=== PATIENT | female | born 1940 | race Asian ===

== ENCOUNTER 2017-08-28 19:19 | Emergency (ER) | payer MEDICARE, OTHER ==
[2016-05-24 13:48] VITALS: Wt 44.5 kg
[~2017-08-28 19:19] MED LIST: ACET500T68 PO; ALUM PO; AMLO-96 PO; ASPI81TA94 PO; CALC500T6 PO; DEME300T9 PO; DEX4 PO; DIPHENHYDR PO; DRON2.5C10 PO; DRON2.5C11 PO; FEN145 PO; FENT-15 TD; FOLI-94 PO; HYDR-2966 PO; HYDR-385 PO; IRON1CAP52 PO; LEVO-85 PO; LIDO5CRE TP; LIDOCAINE PO; MELA3TAB31 PO; METO-253 PO; METO50TA19 PO; ONDA-2 PO; ONDA4TAB PO; ONDA8TAB94 PO; OXYC-865 PO; PANT40TA65 PO; SULF-198 PO; [UNRECOGNIZED DRUG - OTHER] PO
[2017-08-28] MEDS ORDERED: BISA5TAB19 PO (19:31)
[2017-08-28] MEDS ORDERED: LACT10SO62 PO (19:31)
[2017-08-28] MEDS ORDERED: [UNRECOGNIZED DRUG - CODE] PO (19:31)
[2017-08-28] MEDS ORDERED: AMLO-96 PO (19:31)
[2017-08-28] MEDS ORDERED: TRAM-420 PO (19:31)
--- NOTE | 2017-08-28 19:31 | ER Report ---
History and Physical Time Seen By MD: 19:30 HPI/ROS CHIEF COMPLAINT: Chest pain HISTORY OF PRESENT ILLNESS: 76-year-old female patient presents to emergency room with complaint of chest pain. Patient states she's been having chest pain for the last several hours. She states she did try some Tums at home with no relief. Patient states she has pain in the epigastric region. Patient denies any nausea, vomiting. Patient does have worsening pain which takes a deep breath. Patient states she has not had any problems eating or drinking. She states she is not taking any medication for this. Patient has just returned from a trip to [facility], where she spent the last 8 months. 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 She was on hospice but was released from hospice after doing well for several months. She did see a provider in [facility], the recommended surgery, however the patient refused surgery at that time. REVIEW OF SYSTEMS: Respiratory: No cough, no dyspnea. Cardiovascular: As noted above Gastrointestinal: As noted above. Musculoskeletal: No back pain. Allergies: Coded Allergies: diphenhydramine (Verified Adverse Reaction, Intermediate, RASH, 08/28/17) Home Meds Active Scripts Oxycodone Hcl (OXYCODONE HCL) 5 Mg Tablet, 5 MG PO Q4-6H Y for PAIN, #20 TAB Prov:BIANCA REYES BARBER SHOP OPERATOR 08/28/17 Reported Medications Amlodipine Besylate (AMLODIPINE BESYLATE) 5 Mg Tablet, 1 TAB PO QDAY, TAB 08/28/17 Bisacodyl (Women's Gentle Laxative) 5 Mg Tablet.dr, PO Q8H Y for CONSTIPATION 08/28/17 Lactulose (LACTULOSE) 10 Gm/15 Ml Solution, 20 ML PO Q8H Y for CONSTIPATION 08/28/17 Megestrol Acetate (MEGACE ES) 625 Mg/5 Ml Oral.susp, 160 MG PO DAILY 08/28/17 Tramadol Hcl (TRAMADOL HCL) 50 Mg Tablet, 50-150 MG PO Q4-6H Y for PAIN, TAB 08/28/17 Discontinued Reported Medications Mu-Vits-Min Th/Lycopene/Lutein (A THRU Z SELECT MULTIVIT TAB) 1 Each Tablet, 1 EACH PO DAILY 12/30/12 Metoprolol Tartrate (METOPROLOL TARTRATE) 50 Mg Tab, 1 TAB PO QDAY 9/4/13 Discontinued Scripts Hydrocodone Bit/Acetaminophen (HYDROCODON-ACETAMINOPHEN 5-325) 1 Each Tablet, 1- 2 EACH PO Q4H, #30 TAB Prov:CHAPO ESPINOSA CHAVO 11/18/16 Ondansetron (ZOFRAN ODT) 4 Mg Tab.rapdis, 4 MG PO Q6H Y for NAUSEA/VOMITING, # 20 TAB.MILIND Prov:CHAPO ESPINOSA SABRA-Mine 11/18/16 Dexamethasone 4 Mg Tab (DEXAMETHASONE 4 MG TAB) 4 Mg Tab, 4 MG PO DAILY for 7 Days, #7 TAB Prov:CHAPO ESPINOSA SABRA-Mine 11/18/16 Metoprolol Succinate (METOPROLOL SUCCINATE) 50 Mg Tab.er.24h, 1 TAB PO QDAY, # 30 TAB Prov:PABLO CHAVEZ MD 05/28/16 Past Medical/Surgical History Patient has a past medical history of hypertension, hyperlipidemia, positive PPD , GI bleed, anxiety, cancer. Patient has past surgical history of tubal ligation. Reviewed Nurses Notes: Yes Hx Smoking: Yes Smoking Status: Former Smoker Exposure to Second Hand Smoke?: Yes Hx Substance Use Disorder: No Hx Alcohol Use: No Constitutional Vital Sign - Last 24 Hours 08/28/17 08/28/17 08/28/17 08/28/17 19:30 19:31 19:45 20:00 Temp 99.2 Pulse 94 96 94 93 Resp 14 21 18 B/P (MAP) 137/62 (87) 137/62 144/59 (87) Pulse Ox 92 93 92 90 O2 Delivery Room Air 08/28/17 08/28/17 08/28/17 08/28/17 20:15 20:30 20:45 20:55 Pulse 95 100 Resp 14 17 17 B/P (MAP) 148/66 (93) Pulse Ox 90 90 91 08/28/17 08/28/17 08/28/17 08/28/17 21:15 21:30 21:45 22:00 Pulse 114 104 102 104 Resp 20 19 16 B/P (MAP) 156/87 (110) 145/74 (97) Pulse Ox 86 93 92 Intake and Output 08/28/17 08/28/17 08/29/17 15:01 23:01 07:01 Intake Total 500 ml Balance 500 ml Physical Exam General Appearance: The patient is alert, has no immediate need for airway protection and no current signs of toxicity. Respiratory: Chest is non tender, lungs are clear to auscultation. Cardiac: regular rate and rhythm, patient does have a murmur. Gastrointestinal: Abdomen is soft and tender in the epigastric region, no masses , bowel sounds normal. Musculoskeletal: Neck: Neck is supple and non tender. Extremities have full range of motion and are non tender. Skin: No rashes or lesions. DIFFERENTIAL DIAGNOSIS: After history and physical exam differential diagnosis was considered for chest pain including but not limited to myocardial ischemia, pericarditis pulmonary embolus, chest wall pain, pleural inflammation and pulmonary infectious causes. Medical Decision Making Data Points Result Diagram: 08/28/17193908/28/171939 Laboratory Hematology Test 08/28/17 19:40 Red Blood Count 3.16 M/uL (4.17-5.56) Mean Corpuscular Volume 69.7 fL (80.0-96.0) Mean Corpuscular Hemoglobin 23.1 pg (26.0-33.0) Mean Corpuscular Hemoglobin Concent 33.2 g/dL (32.0-36.0) Red Cell Distribution Width 21.2 % (11.5-14.5) Mean Platelet Volume 7.2 fL (7.2-11.1) Neutrophils (%) (Auto) % (39.4-72.5) Lymphocytes (%) (Auto) % (17.6-49.6) Monocytes (%) (Auto) % (4.1-12.4) Eosinophils (%) (Auto) % (0.4-6.7) Basophils (%) (Auto) % (0.3-1.4) Nucleated RBC Relative Count (auto) /100WBC Neutrophils # (Auto) K/uL (2.0-7.4) Lymphocytes # (Auto) K/uL (1.3-3.6) Monocytes # (Auto) K/uL (0.3-1.0) Eosinophils # (Auto) K/uL (0.0-0.5) Basophils # (Auto) K/uL (0.0-0.1) Nucleated RBC Absolute Count (auto) K/uL Neutrophils % (Manual) 85 % (39.4-72.5) Lymphocytes % (Manual) 8 % (17.6-49.6) Monocytes % (Manual) 5 % (4.1-12.4) Eosinophils % (Manual) 1 % (0.4-6.7) Basophils % (Manual) 1 % (0.3-1.4) Hypochromasia 1+ Anisocytosis 2+ Microcytosis 2+ Peripheral Blood Smear Yes Y/N Sodium Level 134 mmol/L (137-145) Potassium Level 3.2 mmol/L (3.5-5.0) Chloride Level 104 mmol/L (98-107) Carbon Dioxide Level 19 mmol/L (22-31) Blood Urea Nitrogen 8 mg/dl (7-18) Creatinine 0.60 mg/dl (0.52-1.04) Glomerular Filtration Rate Calc > 60.0 Random Glucose 120 mg/dl (75-110) Calcium Level 8.6 mg/dl (8.4-10.2) Total Bilirubin 0.7 mg/dl (0.2-1.3) Aspartate Amino Transf (AST/SGOT) 41 U/L (0-35) Alanine Aminotransferase (ALT/SGPT) 27 U/L (0-56) Alkaline Phosphatase 438 U/L (0-126) Troponin I < 0.012 ng/ml Total Protein 6.5 gm/dl (6.3-8.2) Albumin 2.6 g/dl (3.5-5.0) Amylase Level 87 U/L (0-110) Lipase 101 U/L (23-300) Chemistry Test 08/28/17 19:40 White Blood Count 13.1 k/uL (4.5-11.0) Red Blood Count 3.16 M/uL (4.17-5.56) Hemoglobin 7.3 g/dL (12.0-16.0) Hematocrit 22.0 % (34.0-47.0) Mean Corpuscular Volume 69.7 fL (80.0-96.0) Mean Corpuscular Hemoglobin 23.1 pg (26.0-33.0) Mean Corpuscular Hemoglobin Concent 33.2 g/dL (32.0-36.0) Red Cell Distribution Width 21.2 % (11.5-14.5) Platelet Count 469 K/uL (150-450) Mean Platelet Volume 7.2 fL (7.2-11.1) Neutrophils (%) (Auto) % (39.4-72.5) Lymphocytes (%) (Auto) % (17.6-49.6) Monocytes (%) (Auto) % (4.1-12.4) Eosinophils (%) (Auto) % (0.4-6.7) Basophils (%) (Auto) % (0.3-1.4) Nucleated RBC Relative Count (auto) /100WBC Neutrophils # (Auto) K/uL (2.0-7.4) Lymphocytes # (Auto) K/uL (1.3-3.6) Monocytes # (Auto) K/uL (0.3-1.0) Eosinophils # (Auto) K/uL (0.0-0.5) Basophils # (Auto) K/uL (0.0-0.1) Nucleated RBC Absolute Count (auto) K/uL Neutrophils % (Manual) 85 % (39.4-72.5) Lymphocytes % (Manual) 8 % (17.6-49.6) Monocytes % (Manual) 5 % (4.1-12.4) Eosinophils % (Manual) 1 % (0.4-6.7) Basophils % (Manual) 1 % (0.3-1.4) Hypochromasia 1+ Anisocytosis 2+ Microcytosis 2+ Peripheral Blood Smear Yes Y/N Glomerular Filtration Rate Calc > 60.0 Calcium Level 8.6 mg/dl (8.4-10.2) Total Bilirubin 0.7 mg/dl (0.2-1.3) Aspartate Amino Transf (AST/SGOT) 41 U/L (0-35) Alanine Aminotransferase (ALT/SGPT) 27 U/L (0-56) Alkaline Phosphatase 438 U/L (0-126) Troponin I < 0.012 ng/ml Total Protein 6.5 gm/dl (6.3-8.2) Albumin 2.6 g/dl (3.5-5.0) Amylase Level 87 U/L (0-110) Lipase 101 U/L (23-300) EKG/Imaging EKG Interpretation 12 lead EKG: Rhythm: normal sinus rhythm Wallback: normal QRS: normal ST segments: Specific T-wave abnormality Imaging EXAMINATION: CTA of the chest with IV contrast, CT abdomen and pelvis with IV contrast History: Chest pain, cancer TECHNIQUE: Pulmonary embolus protocol - Thin-slice axial imaging of the chest was performed during maximal pulmonary arterial opacification with intravenous nonionic iodinated contrast. 3D coronal slab MIPs and 2D reconstructions in the coronal and sagittal planes were performed to aid in pulmonary embolus detection. Reserves Clerk images have been stored on PACS. One of the following dose optimization techniques was utilized in the performance of this exam: Automated exposure control; adjustment of the mA and/or kV according to the patient's size; or use of an iterative reconstruction technique. Specific details can be referenced in the facility's radiology CT exam operational policy. Contrast: 75 mL of IV Isovue-370 COMPARISON STUDIES: CT report 10/12/2015, images not available.. FINDINGS: Please note that this exam is optimized for assessment of the pulmonary arteries and is not intended as a diagnostic study of the thoracic aorta, coronary arteries or venous structures. Angiographic Findings: Pulmonary arteries: There are no filling defects in the main, right, left, lobar , segmental or visualized sub-segmental branches of the pulmonary arterial system Other vasculature: negative. Additional non-angiographic findings: Lungs / Pleura: Small bilateral pleural effusions. Left basilar atelectasis. Interval development of multiple bilateral pulmonary metastases, largest lesion on the right is 1.3 x 1.1 cm, series 5 axial image 38. Largest lesion on the left is in the lower lobe superior segment, series 5 axial image 32.. Mediastinum / Amye: negative. Heart / Pericardium: Enlarged. Musculoskeletal / Body wall: negative Lymph node assessment: Mildly prominent AP window lymph node measuring 1.3 x 0.7 cm. Right pericardial metastasis measures 2.6 cm. Upper abdomen: negative Lower neck:Negative EXAMINATION: CT abdomen with IV contrast CT pelvis with IV contrast TECHNIQUE: Spiral scan was through the abdomen and pelvis during injection of nonionic iodinated intravenous contrast. One of the following dose optimization techniques was utilized in the performance of this exam: Automated exposure control; adjustment of the mA and/or kV according to the patient's size; or use of an iterative reconstruction technique. Specific details can be referenced in the facility's radiology CT exam operational policy. Contrast: 75 mL of IV Isovue-370. COMPARISON STUDIES: CT report 10/12/2015, images not available.. FINDINGS: Liver / biliary: Significant progression of metastatic disease to the liver the largest of which is centrally measuring 7.3 x 8.8 cm, by report this corresponds to the lesion which was 2 cm in size. Additionally, there is been interval development of multiple satellite lesions throughout both lobes of the liver. Pancreas: negative Spleen: negative Adrenal glands: negative Kidneys / retroperitoneum: negative Pelvic structures: Small amount of free pelvic fluid. There are multiple peritoneal implants, the largest is in the left pelvis measuring 3.5 x 1.8 cm, series 11 #103. Smaller deep pelvic implant image 105 and near the gastric fundus, image 31. Several periportal pathologically enlarged lymph nodes. Bowel / peritoneum / mesenteries: Cecal mass consistent with patient history. Vessels: Abdominal aortic aneurysm measuring 3.5 cm Musculoskeletal / Body wall: negative Lymph node assessment: As above IMPRESSION: 1. CTA of the chest demonstrates no evidence of pulmonary embolism. There are multiple new bilateral pulmonary metastases. 2. Small bilateral pleural effusions and mild left basilar atelectasis.3. CT of the abdomen and pelvis demonstrates a cecal mass with significant progression of liver metastatic disease and development of multiple peritoneal metastases and pathologically enlarged lymph nodes. 4. 3.5 cm abdominal aortic aneurysm. Results were called to BIANCA REYES at 2200 hours. . Report Dictated By: Kalen Barraza MD at 08/28/2017 9:36 PM Report E-Signed By: Kalen Barraza MD at 08/28/2017 10:03 PM EXAMINATION: CTA of the chest with IV contrast, CT abdomen and pelvis with IV contrast History: Chest pain, cancer TECHNIQUE: Pulmonary embolus protocol - Thin-slice axial imaging of the chest was performed during maximal pulmonary arterial opacification with intravenous nonionic iodinated contrast. 3D coronal slab MIPs and 2D reconstructions in the coronal and sagittal planes were performed to aid in pulmonary embolus detection. Reserves Clerk images have been stored on PACS. One of the following dose optimization techniques was utilized in the performance of this exam: Automated exposure control; adjustment of the mA and/or kV according to the patient's size; or use of an iterative reconstruction technique. Specific details can be referenced in the facility's radiology CT exam operational policy. Contrast: 75 mL of IV Isovue-370 COMPARISON STUDIES: CT report 10/12/2015, images not available.. FINDINGS: Please note that this exam is optimized for assessment of the pulmonary arteries and is not intended as a diagnostic study of the thoracic aorta, coronary arteries or venous structures. Angiographic Findings: Pulmonary arteries: There are no filling defects in the main, right, left, lobar , segmental or visualized sub-segmental branches of the pulmonary arterial system Other vasculature: negative. Additional non-angiographic findings: Lungs / Pleura: Small bilateral pleural effusions. Left basilar atelectasis. Interval development of multiple bilateral pulmonary metastases, largest lesion on the right is 1.3 x 1.1 cm, series 5 axial image 38. Largest lesion on the left is in the lower lobe superior segment, series 5 axial image 32.. Mediastinum / Maye: negative. Heart / Pericardium: Enlarged. Musculoskeletal / Body wall: negative Lymph node assessment: Mildly prominent AP window lymph node measuring 1.3 x 0.7 cm. Right pericardial metastasis measures 2.6 cm. Upper abdomen: negative Lower neck:Negative EXAMINATION: CT abdomen with IV contrast CT pelvis with IV contrast TECHNIQUE: Spiral scan was through the abdomen and pelvis during injection of nonionic iodinated intravenous contrast. One of the following dose optimization techniques was utilized in the performance of this exam: Automated exposure control; adjustment of the mA and/or kV according to the patient's size; or use of an iterative reconstruction technique. Specific details can be referenced in the facility's radiology CT exam operational policy. Contrast: 75 mL of IV Isovue-370. COMPARISON STUDIES: CT report 10/12/2015, images not available.. FINDINGS: Liver / biliary: Significant progression of metastatic disease to the liver the largest of which is centrally measuring 7.3 x 8.8 cm, by report this corresponds to the lesion which was 2 cm in size. Additionally, there is been interval development of multiple satellite lesions throughout both lobes of the liver. Pancreas: negative Spleen: negative Adrenal glands: negative Kidneys / retroperitoneum: negative Pelvic structures: Small amount of free pelvic fluid. There are multiple peritoneal implants, the largest is in the left pelvis measuring 3.5 x 1.8 cm, series 11 #103. Smaller deep pelvic implant image 105 and near the gastric fundus, image 31. Several periportal pathologically enlarged lymph nodes. Bowel / peritoneum / mesenteries: Cecal mass consistent with patient history. Vessels: Abdominal aortic aneurysm measuring 3.5 cm Musculoskeletal / Body wall: negative Lymph node assessment: As above IMPRESSION: 1. CTA of the chest demonstrates no evidence of pulmonary embolism. There are multiple new bilateral pulmonary metastases. 2. Small bilateral pleural effusions and mild left basilar atelectasis.3. CT of the abdomen and pelvis demonstrates a cecal mass with significant progression of liver metastatic disease and development of multiple peritoneal metastases and pathologically enlarged lymph nodes. 4. 3.5 cm abdominal aortic aneurysm. Results were called to BIANCA REYES at 2200 hours. . Report Dictated By: Kalen Barraza MD at 08/28/2017 9:36 PM Report E-Signed By: Kalen Barraza MD at 08/28/2017 10:03 PM ED Course/Re-evaluation ED Course Patient was admitted to an exam room, history and physical were obtained. Differential diagnoses were considered. I examination patient did have tenderness in the epigastric region. With patient traveling, with her history of cancer a CT pulmonary angiogram was done, and also a CT scan of the abdomen and pelvis were done. CBC, CMP, troponin, EKG were done. The lab showed the patient is anemic with a hemoglobin of 7.3, hematocrit was 22. White count slightly elevated at 13,000, I believe is likely secondary to stress associated with travel and come to the emergency room. Troponin was negative, EKG showed normal sinus rhythm. CT scan of the chest showed no pulmonary emboli, it did show bilateral metastatic disease. CT scan of the abdomen and pelvis showed diffuse metastatic disease in the liver, has a large 8 cm mass, I believe that is likely the cause of pain is is more midline. Patient has 10-11 masses located in the liver. I discussed findings with the patient and her . I believe that the pain is related to the mass, we will treat her with pain medication at home. She does have tramadol which was prescribed [place]. I will have her go ahead and continue taking that. I will give her a prescription for oxycodone that she can take if her pain is not resolved with tramadol. Return to emergency room if condition worsens. Discussed findings with patient and her verbalized understanding and agreement. Decision to Disposition Date: August 28, 2017 Decision to Disposition Time: 22:18 Depart Departure Latest Vital Signs Vital Signs Date Time Temp Pulse Resp B/P (MAP) Pulse Ox O2 Delivery O2 Flow Rate FiO2 08/28/17 22:00 104 16 145/74 (97) 92 08/28/17 19:31 99.2 Room Air Impression: Primary Impression: Abdominal pain Additional Impression: Cancer of cecum Condition: Improved Disposition: HOME OR SELF-CARE Referrals: JENNIFER BENTLEY (PCP) New Scripts Oxycodone Hcl (OXYCODONE HCL) 5 Mg Tablet 5 MG PO Q4-6H Y for PAIN, #20 TAB Prov: BIANCA REYES 08/28/17 Patient Instructions: Abdominal Pain (ED) Additional Instructions: Increase fluid intake. Get plenty of rest. Limit activity by pain. Follow up with Jackelin Barber next week, you can tell her that the labs were done tonight, I anticipate that she will need to have a transfusion done next week. Return to the ER if condition worsens. Problem Qualifiers Primary Impression: Abdominal pain Abdominal location: epigastric Qualified Codes: R10.13 - Epigastric pain BIANCA REYES August 28, 2017 19:31
[2017-08-28] MEDS ORDERED: NS(*) 0.9% 500 ML BAG 500 ML IV ONE (19:39)
[2017-08-28] MEDS ORDERED: MORPHINE 2 MG/ML SYR IVP ONE (19:40)
[2017-08-28] MEDS ORDERED: IOPAMIDOL 76% 75 ML INFUS BTL 75 ML ONE (19:52)
[2017-08-28] MEDS ORDERED: NS 0.9% 150 ML BAG 150 ML ONE (19:52)
[2017-08-28 19:53] LABS: PLATELET COUNT, AUTOMATED 469 K/uL (150-450)
--- NOTE | 2017-08-28 22:06 | RADIOLOGY IMAGING REPORT ---
FACILITY: [facility] [place] PATIENT NAME: Cassia Nathan : 1940 MR: [id number] V: [id number] EXAM DATE: ORDERING PHYSICIAN: BIANCA REYES TECHNOLOGIST: Location: [facility] [place] Patient: Cassia Nathan : 1940 Visit/Account:[id number] Date of Sevice: 08/28/2017 EXAMINATION: CTA of the chest with IV contrast, CT abdomen and pelvis with IV contrast History: Chest pain, cancer TECHNIQUE: Pulmonary embolus protocol - Thin-slice axial imaging of the chest was performed during maximal pulmonary arterial opacification with intravenous nonionic iodinated contrast. 3D coronal sla b MIPs and 2D reconstructions in the coronal and sagittal planes were performed to aid in pulmonary e mbolus detection. Fitness Director images have been stored on PACS. One of the following dose optimizat ion techniques was utilized in the performance of this exam: Automated exposure control; adjustment o f the mA and/or kV according to the patient's size; or use of an iterative reconstruction technique. Specific details can be referenced in the facility's radiology CT exam operational policy. Contrast: 75 mL of IV Isovue-370 COMPARISON STUDIES: CT report 10/12/2015, images not available.. FINDINGS: Please note that this exam is optimized for assessment of the pulmonary arteries and is not intended as a diagnostic study of the thoracic aorta, coronary arteries or venous structures. Angiographic Findings: Pulmonary arteries: There are no filling defects in the main, right, left, lobar, segmental or visual ized sub-segmental branches of the pulmonary arterial system Other vasculature: negative. Additional non-angiographic findings: Lungs / Pleura: Small bilateral pleural effusions. Left basilar atelectasis. Interval development o f multiple bilateral pulmonary metastases, largest lesion on the right is 1.3 x 1.1 cm, series 5 axia l image 38. Largest lesion on the left is in the lower lobe superior segment, series 5 axial image 32 .. Mediastinum / Maye: negative. Heart / Pericardium: Enlarged. Musculoskeletal / Body wall: negative Lymph node assessment: Mildly prominent AP window lymph node measuring 1.3 x 0.7 cm. Right pericard ial metastasis measures 2.6 cm. Upper abdomen: negative Lower neck:Negative EXAMINATION: CT abdomen with IV contrast CT pelvis with IV contrast TECHNIQUE: Spiral scan was through the abdomen and pelvis during injection of nonionic iodinated in travenous contrast. One of the following dose optimization techniques was utilized in the performance of this exam: Automated exposure control; adjustment of the mA and/or kV according to the patient's size; or use of an iterative reconstruction technique. Specific details can be referenced in the [facility]'s radiology CT exam operational policy. Contrast: 75 mL of IV Isovue-370. COMPARISON STUDIES: CT report 10/12/2015, images not available.. FINDINGS: Liver / biliary: Significant progression of metastatic disease to the liver the largest of which is c entrally measuring 7.3 x 8.8 cm, by report this corresponds to the lesion which was 2 cm in size. Add itionally, there is been interval development of multiple satellite lesions throughout both lobes of the liver. Pancreas: negative Spleen: negative Adrenal glands: negative Kidneys / retroperitoneum: negative Pelvic structures: Small amount of free pelvic fluid. There are multiple peritoneal implants, the largest is in the left pelvis measuring 3.5 x 1.8 cm, series 11 #103. Smaller deep pelvic implant isaiah ge 105 and near the gastric fundus, image 31. Several periportal pathologically enlarged lymph nodes. Bowel / peritoneum / mesenteries: Cecal mass consistent with patient history. Vessels: Abdominal aortic aneurysm measuring 3.5 cm Musculoskeletal / Body wall: negative Lymph node assessment: As above IMPRESSION: 1. CTA of the chest demonstrates no evidence of pulmonary embolism. There are multiple new bilateral pulmonary metastases. 2. Small bilateral pleural effusions and mild left basilar atelectasis.3. CT of the abdomen and pelvis demonstrates a cecal mass with significant progression of liver metastatic di sease and development of multiple peritoneal metastases and pathologically enlarged lymph nodes. 4. 3.5 cm abdominal aortic aneurysm. Results were called to BIANCA REYES at 2200 hours. . Report Dictated By: Kalen Barraza MD at 08/28/2017 9:36 PM Report E-Signed By: Kalen Barraza MD at 08/28/2017 10:03 PM WSN:[id number]
--- NOTE | 2017-08-28 22:06 | RADIOLOGY IMAGING REPORT ---
FACILITY: [facility] PATIENT NAME: Cassia Nathan : 1940 MR: [id number] V: [id number] EXAM DATE: ORDERING PHYSICIAN: BIANCA REYES TECHNOLOGIST: Location: [facility] [place] Patient: Cassia Nathan : 1940 Visit/Account:[id number] Date of Sevice: 08/28/2017 EXAMINATION: CTA of the chest with IV contrast, CT abdomen and pelvis with IV contrast History: Chest pain, cancer TECHNIQUE: Pulmonary embolus protocol - Thin-slice axial imaging of the chest was performed during maximal pulmonary arterial opacification with intravenous nonionic iodinated contrast. 3D coronal sla b MIPs and 2D reconstructions in the coronal and sagittal planes were performed to aid in pulmonary e mbolus detection. Patch Machine Operator images have been stored on PACS. One of the following dose optimizat ion techniques was utilized in the performance of this exam: Automated exposure control; adjustment o f the mA and/or kV according to the patient's size; or use of an iterative reconstruction technique. Specific details can be referenced in the facility's radiology CT exam operational policy. Contrast: 75 mL of IV Isovue-370 COMPARISON STUDIES: CT report 10/12/2015, images not available.. FINDINGS: Please note that this exam is optimized for assessment of the pulmonary arteries and is not intended as a diagnostic study of the thoracic aorta, coronary arteries or venous structures. Angiographic Findings: Pulmonary arteries: There are no filling defects in the main, right, left, lobar, segmental or visual ized sub-segmental branches of the pulmonary arterial system Other vasculature: negative. Additional non-angiographic findings: Lungs / Pleura: Small bilateral pleural effusions. Left basilar atelectasis. Interval development o f multiple bilateral pulmonary metastases, largest lesion on the right is 1.3 x 1.1 cm, series 5 axia l image 38. Largest lesion on the left is in the lower lobe superior segment, series 5 axial image 32 .. Mediastinum / Maye: negative. Heart / Pericardium: Enlarged. Musculoskeletal / Body wall: negative Lymph node assessment: Mildly prominent AP window lymph node measuring 1.3 x 0.7 cm. Right pericard ial metastasis measures 2.6 cm. Upper abdomen: negative Lower neck:Negative EXAMINATION: CT abdomen with IV contrast CT pelvis with IV contrast TECHNIQUE: Spiral scan was through the abdomen and pelvis during injection of nonionic iodinated in travenous contrast. One of the following dose optimization techniques was utilized in the performance of this exam: Automated exposure control; adjustment of the mA and/or kV according to the patient's size; or use of an iterative reconstruction technique. Specific details can be referenced in the [facility]'s radiology CT exam operational policy. Contrast: 75 mL of IV Isovue-370. COMPARISON STUDIES: CT report 10/12/2015, images not available.. FINDINGS: Liver / biliary: Significant progression of metastatic disease to the liver the largest of which is c entrally measuring 7.3 x 8.8 cm, by report this corresponds to the lesion which was 2 cm in size. Add itionally, there is been interval development of multiple satellite lesions throughout both lobes of the liver. Pancreas: negative Spleen: negative Adrenal glands: negative Kidneys / retroperitoneum: negative Pelvic structures: Small amount of free pelvic fluid. There are multiple peritoneal implants, the largest is in the left pelvis measuring 3.5 x 1.8 cm, series 11 #103. Smaller deep pelvic implant isaiah ge 105 and near the gastric fundus, image 31. Several periportal pathologically enlarged lymph nodes. Bowel / peritoneum / mesenteries: Cecal mass consistent with patient history. Vessels: Abdominal aortic aneurysm measuring 3.5 cm Musculoskeletal / Body wall: negative Lymph node assessment: As above IMPRESSION: 1. CTA of the chest demonstrates no evidence of pulmonary embolism. There are multiple new bilateral pulmonary metastases. 2. Small bilateral pleural effusions and mild left basilar atelectasis.3. CT of the abdomen and pelvis demonstrates a cecal mass with significant progression of liver metastatic di sease and development of multiple peritoneal metastases and pathologically enlarged lymph nodes. 4. 3.5 cm abdominal aortic aneurysm. Results were called to BIANCA REYES at 2200 hours. . Report Dictated By: Kalen Barraza MD at 08/28/2017 9:36 PM Report E-Signed By: Kalen Barraza MD at 08/28/2017 10:03 PM WSN:[id number]
[2017-08-28] MEDS ORDERED: oxyCODONE HCL 5 MG CAP PO ONE (22:10)
[2017-08-28] MEDS ORDERED: OXYC5TAB38 PO (22:16)
[2017-08-28] MEDS ORDERED: HEPARIN FLSH (PORT) 500 UN/5ML IVP ONE (22:25)
[2017-08-28 22:30] VITALS: BP 140/86
--- NOTE | 2017-08-29 01:06 | EKG ---
FACILITY: [facility] [place] PATIENT NAME: ANTHONY OLIVAS : [id number] MR: [id number] V: [id number] EXAM DATE: ORDERING PHYSICIAN: CARLENE HADLEY TECHNOLOGIST: RANDALL Test Reason : CHEST PAIN Blood Pressure : / mmHG Vent. Rate : 095 BPM Atrial Rate : 095 BPM P-R Int : 118 ms QRS Dur : 074 ms QT Int : 334 ms P-R-T Axes : 053 022 -15 degrees QTc Int : 419 ms Normal sinus rhythm Nonspecific T wave abnormality Abnormal ECG When compared with ECG of 10-OCT-2015 15:16, Nonspecific T wave abnormality now evident in Anterolateral leads Confirmed by PABLO HINDS ([id number]) on 08/29/2017 6:26:09 AM Referred By: Confirmed By:PABLO HINDS
== END 2017-08-28 22:35 | disposition home or self-care (01) ==
LOC: ER 19:37
DX: D64.9 Anemia, unspecified (principal); C18.9 Malignant neoplasm of colon, unspecified; C78.7 Secondary malignant neoplasm of liver and intrahepatic bile duct; C78.02 Secondary malignant neoplasm of left lung; C78.01 Secondary malignant neoplasm of right lung; R94.31 Abnormal electrocardiogram [ECG] [EKG]
CPT/HCPCS: 71275; 74177; 82150; 83690; 84484; 85025; 86850; 86900; 86901; 93005; 96361; 96374; 99284; A9270; J1642; J2270; J7040; Q9967; 82040; 82247; 82310; 82374; 82435; 82565; 82947; 84075; 84132; 84155; 84295; 84450; 84460; 84520

== ENCOUNTER 2017-08-31 10:46 | Outpatient (RCR) | payer MEDICARE, OTHER ==
[2016-05-23 10:30] VITALS: BP 168/48
[2016-05-24 13:48] VITALS: BMI 19.2
[~2017-08-31 10:46] MED LIST changes: +BISA5TAB19 PO; +LACT10SO62 PO; +OXYC5TAB38 PO; +TRAM-420 PO; +[UNRECOGNIZED DRUG - CODE] PO
[2017-09-10] MEDS ORDERED: DRON2.5C11 PO (05:58)
[2017-09-16] MEDS ORDERED: POTA-53 PO (10:38)
[2017-09-16] MEDS ORDERED: AMOX-556 PO (10:53)
[2017-09-22] MEDS ORDERED: IRON150C19 PO (09:48)
[2017-09-22] MEDS ORDERED: PANT40TA65 PO (09:54)
[2017-09-24] MEDS ORDERED: SUCR1TAB85 PO (16:54)
== END 2017-09-23 13:55 | disposition home or self-care (01) ==
LOC: ONC 10:46
PROVIDERS: ATTEND Nurse Practitioner Family
DX: C18.9 Malignant neoplasm of colon, unspecified (principal); D50.9 Iron deficiency anemia, unspecified; R91.8 Other nonspecific abnormal finding of lung field

== ENCOUNTER → 2017-09-01 | Outpatient (CLI) | payer MEDICARE, OTHER ==
[2016-05-24 13:48] VITALS: BMI 19.2
[~2017-09-01] MED LIST changes: +ACETAMINOPHEN 500 MG TAB PO ONE; +ALTEPLASE RECOMB 2 MG VIAL IVP PRN; +DEXTROSE 5%(*) 100 ML BAG 100 ML IVPB PRN; +HEPARIN FLSH (PORT) 500 UN/5ML IVP PRN; +LIDOCAINE/SOD BICARB 8.4% SYR ID PRN; +NS(*) 0.9% 100 ML BAG 100 ML IVPB PRN; +NS(*) 0.9% 500 ML BAG 500 ML IV PRN; +WATER FOR INJ,STERILE 20 ML IVP PRN
[2017-09-01 12:17] VITALS: BP 134/59
[2017-09-01 12:31] VITALS: BP 125/58
[2017-09-01 12:46] VITALS: BP 125/84
[2017-09-01 14:40] VITALS: BP 144/62
[2017-09-01 14:54] VITALS: BP 145/65
[2017-09-01 16:45] VITALS: BP 144/84
== END ==
LOC: SPU 08:03
PROVIDERS: ATTEND Nurse Practitioner Family
DX: C18.9 Malignant neoplasm of colon, unspecified (principal); D50.9 Iron deficiency anemia, unspecified; R91.8 Other nonspecific abnormal finding of lung field
CPT/HCPCS: 86850; 86900; 86901; 86920; A9270; J1642; J7040; P9016

== ENCOUNTER 2017-09-09 13:53 | Inpatient (IN) | payer MEDICARE, OTHER ==
[~2017-09-09] VITALS: Ht 152.4 cm; Wt 43.5 kg
[~2017-09-09 13:53] MED LIST changes: -ACETAMINOPHEN 500 MG TAB PO ONE; -ALTEPLASE RECOMB 2 MG VIAL IVP PRN; -DEXTROSE 5%(*) 100 ML BAG 100 ML IVPB PRN; -HEPARIN FLSH (PORT) 500 UN/5ML IVP PRN; -LIDOCAINE/SOD BICARB 8.4% SYR ID PRN; -NS(*) 0.9% 100 ML BAG 100 ML IVPB PRN; -NS(*) 0.9% 500 ML BAG 500 ML IV PRN; -WATER FOR INJ,STERILE 20 ML IVP PRN
--- NOTE | 2017-09-09 13:56 | ER Report ---
History and Physical Time Seen By MD: 13:56 HPI/ROS This is a 76-year-old female with known metastatic cecal cancer. She last underwent chemotherapy approximately 15 months ago. At that time she and her family made the decision that she would go on hospice care. She will remain on hospice for 5 months at which point she did well and was released from hospice. She recently been on a trip to [facility] and developed a partial small bowel obstruction. Today she started with worsening abdominal pain, nausea, one episode of vomiting, and has not passed gas in the last few hours. He also has not been taking by mouth. Her she has lost approximately 10 pounds in the past month. She is otherwise in good spirits and has no other complaints other then continued generalized weakness which she has had for the past few months. Remainder of the 14 system rev: Yes Allergies: Coded Allergies: diphenhydramine (Verified Adverse Reaction, Intermediate, RASH, 09/09/17) Home Meds Active Scripts Oxycodone Hcl (OXYCODONE HCL) 5 Mg Tablet, 5 MG PO Q4-6H Y for PAIN, #20 TAB Prov:BIANCA REYES OPERATIONS RESEARCH ENGINEER 08/28/17 Reported Medications Amlodipine Besylate (AMLODIPINE BESYLATE) 5 Mg Tablet, 1 TAB PO QDAY, TAB 08/28/17 Bisacodyl (Women's Gentle Laxative) 5 Mg Tablet.dr, PO Q8H Y for CONSTIPATION 08/28/17 Lactulose (LACTULOSE) 10 Gm/15 Ml Solution, 20 ML PO Q8H Y for CONSTIPATION 08/28/17 Megestrol Acetate (MEGACE ES) 625 Mg/5 Ml Oral.susp, 160 MG PO DAILY 08/28/17 Tramadol Hcl (TRAMADOL HCL) 50 Mg Tablet, 50-150 MG PO Q4-6H Y for PAIN, TAB 08/28/17 Reviewed Nurses Notes: Yes Old Medical Records Reviewed: Yes Hx Smoking: Yes Smoking Status: Former Smoker Exposure to Second Hand Smoke?: Yes Hx Substance Use Disorder: No Hx Alcohol Use: No Constitutional Vital Sign - Last 24 Hours 09/09/17 09/09/17 09/09/17 09/09/17 13:58 14:00 14:02 14:23 Temp 97.9 Pulse 103 Resp 18 B/P (MAP) 197/85 (122) 196/86 (122) 196/86 Pulse Ox 97 09/09/17 09/09/17 09/09/17 09/09/17 14:30 14:53 15:00 15:30 Pulse 106 B/P (MAP) 184/77 (112) 154/74 (100) 172/77 (108) Pulse Ox 90 09/09/17 09/09/17 09/09/17 09/09/17 15:35 15:50 16:00 16:05 Pulse 101 106 102 B/P (MAP) 153/77 (102) Pulse Ox 88 87 Physical Exam General Appearance: The patient is alert, has no immediate need for airway protection and no current signs of toxicity. Eyes: Pupils equal and round no injection. Respiratory: Chest is non tender, lungs are clear to auscultation. Cardiac: regular rate and rhythm Gastrointestinal: Abdomen is soft with diffuse TTP, not distended Extremities have full range of motion and are non tender. Skin: No rashes or lesions. DIFFERENTIAL DIAGNOSIS: After history and physical exam differential diagnosis was considered for SBO, bowel ischemia, infection Medical Decision Making Data Points Result Diagram: 09/09/17 1420 09/09/17 1420 Laboratory Hematology Test 09/09/17 14:20 09/09/17 16:55 Red Blood Count 4.76 M/uL (4.17-5.56) Mean Corpuscular Volume 77.3 fL (80.0-96.0) Mean Corpuscular Hemoglobin 25.9 pg (26.0-33.0) Mean Corpuscular Hemoglobin Concent 33.6 g/dL (32.0-36.0) Red Cell Distribution Width 25.6 % (11.5-14.5) Mean Platelet Volume 7.2 fL (7.2-11.1) Neutrophils (%) (Auto) % (39.4-72.5) Lymphocytes (%) (Auto) % (17.6-49.6) Monocytes (%) (Auto) % (4.1-12.4) Eosinophils (%) (Auto) % (0.4-6.7) Basophils (%) (Auto) % (0.3-1.4) Nucleated RBC Relative Count (auto) /100WBC Neutrophils # (Auto) K/uL (2.0-7.4) Lymphocytes # (Auto) K/uL (1.3-3.6) Monocytes # (Auto) K/uL (0.3-1.0) Eosinophils # (Auto) K/uL (0.0-0.5) Basophils # (Auto) K/uL (0.0-0.1) Nucleated RBC Absolute Count (auto) K/uL Neutrophils % (Manual) 64 % (39.4-72.5) Lymphocytes % (Manual) 28 % (17.6-49.6) Monocytes % (Manual) 6 % (4.1-12.4) Eosinophils % (Manual) 1 % (0.4-6.7) Basophils % (Manual) 1 % (0.3-1.4) Hypochromasia 1 Anisocytosis 3+ Target Cells 2+ Peripheral Blood Smear Yes Y/N Sodium Level 137 mmol/L (137-145) Potassium Level 2.9 mmol/L (3.5-5.0) Chloride Level 103 mmol/L (98-107) Carbon Dioxide Level 21 mmol/L (22-31) Blood Urea Nitrogen 5 mg/dl (7-18) Creatinine 0.60 mg/dl (0.52-1.04) Glomerular Filtration Rate Calc > 60.0 Random Glucose 97 mg/dl (75-110) Calcium Level 9.4 mg/dl (8.4-10.2) Total Bilirubin 1.2 mg/dl (0.2-1.3) Aspartate Amino Transf (AST/SGOT) 59 U/L (0-35) Alanine Aminotransferase (ALT/SGPT) 26 U/L (0-56) Alkaline Phosphatase 542 U/L (0-126) Total Protein 7.9 gm/dl (6.3-8.2) Albumin 3.0 g/dl (3.5-5.0) Lipase 214 U/L (23-300) Urine Color Yellow Urine Clarity Clear Urine pH 7.0 pH (4.8-9.5) Urine Specific [place] 1.038 Urine Protein 30 mg/dL (NEGATIVE) Urine Glucose (UA) Negative mg/dL (NEGATIVE) Urine Ketones Negative mg/dL (NEGATIVE) Urine Blood Negative (NEGATIVE) Urine Nitrite Negative (NEGATIVE) Urine Bilirubin Negative (NEGATIVE) Urine Urobilinogen 2.0 mg/dL (0.2-1.9) Urine Leukocyte Esterase Trace (NEGATIVE) Urine RBC <1 /HPF (0-2/HPF) Urine WBC 5 /HPF (0-5/HPF) Urine Squamous Epithelial Cells Few /LPF (NONE-FEW) Urine Bacteria Negative /HPF (NONE-FEW) Urine Hyaline Casts Few /LPF (NONE-FEW) Urine Mucus None /HPF (NONE-FEW) Chemistry Test 09/09/17 14:20 09/09/17 16:55 White Blood Count 13.0 k/uL (4.5-11.0) Red Blood Count 4.76 M/uL (4.17-5.56) Hemoglobin 12.4 g/dL (12.0-16.0) Hematocrit 36.8 % (34.0-47.0) Mean Corpuscular Volume 77.3 fL (80.0-96.0) Mean Corpuscular Hemoglobin 25.9 pg (26.0-33.0) Mean Corpuscular Hemoglobin Concent 33.6 g/dL (32.0-36.0) Red Cell Distribution Width 25.6 % (11.5-14.5) Platelet Count 536 K/uL (150-450) Mean Platelet Volume 7.2 fL (7.2-11.1) Neutrophils (%) (Auto) % (39.4-72.5) Lymphocytes (%) (Auto) % (17.6-49.6) Monocytes (%) (Auto) % (4.1-12.4) Eosinophils (%) (Auto) % (0.4-6.7) Basophils (%) (Auto) % (0.3-1.4) Nucleated RBC Relative Count (auto) /100WBC Neutrophils # (Auto) K/uL (2.0-7.4) Lymphocytes # (Auto) K/uL (1.3-3.6) Monocytes # (Auto) K/uL (0.3-1.0) Eosinophils # (Auto) K/uL (0.0-0.5) Basophils # (Auto) K/uL (0.0-0.1) Nucleated RBC Absolute Count (auto) K/uL Neutrophils % (Manual) 64 % (39.4-72.5) Lymphocytes % (Manual) 28 % (17.6-49.6) Monocytes % (Manual) 6 % (4.1-12.4) Eosinophils % (Manual) 1 % (0.4-6.7) Basophils % (Manual) 1 % (0.3-1.4) Hypochromasia 1 Anisocytosis 3+ Target Cells 2+ Peripheral Blood Smear Yes Y/N Glomerular Filtration Rate Calc > 60.0 Calcium Level 9.4 mg/dl (8.4-10.2) Total Bilirubin 1.2 mg/dl (0.2-1.3) Aspartate Amino Transf (AST/SGOT) 59 U/L (0-35) Alanine Aminotransferase (ALT/SGPT) 26 U/L (0-56) Alkaline Phosphatase 542 U/L (0-126) Total Protein 7.9 gm/dl (6.3-8.2) Albumin 3.0 g/dl (3.5-5.0) Lipase 214 U/L (23-300) Urine Color Yellow Urine Clarity Clear Urine pH 7.0 pH (4.8-9.5) Urine Specific [place] 1.038 Urine Protein 30 mg/dL (NEGATIVE) Urine Glucose (UA) Negative mg/dL (NEGATIVE) Urine Ketones Negative mg/dL (NEGATIVE) Urine Blood Negative (NEGATIVE) Urine Nitrite Negative (NEGATIVE) Urine Bilirubin Negative (NEGATIVE) Urine Urobilinogen 2.0 mg/dL (0.2-1.9) Urine Leukocyte Esterase Trace (NEGATIVE) Urine RBC <1 /HPF (0-2/HPF) Urine WBC 5 /HPF (0-5/HPF) Urine Squamous Epithelial Cells Few /LPF (NONE-FEW) Urine Bacteria Negative /HPF (NONE-FEW) Urine Hyaline Casts Few /LPF (NONE-FEW) Urine Mucus None /HPF (NONE-FEW) Urinalysis Test 09/09/17 16:55 Urine Color Yellow Urine Clarity Clear Urine pH 7.0 pH (4.8-9.5) Urine Specific [place] 1.038 Urine Protein 30 mg/dL (NEGATIVE) Urine Glucose (UA) Negative mg/dL (NEGATIVE) Urine Ketones Negative mg/dL (NEGATIVE) Urine Blood Negative (NEGATIVE) Urine Nitrite Negative (NEGATIVE) Urine Bilirubin Negative (NEGATIVE) Urine Urobilinogen 2.0 mg/dL (0.2-1.9) Urine Leukocyte Esterase Trace (NEGATIVE) Urine RBC <1 /HPF (0-2/HPF) Urine WBC 5 /HPF (0-5/HPF) Urine Squamous Epithelial Cells Few /LPF (NONE-FEW) Urine Bacteria Negative /HPF (NONE-FEW) Urine Hyaline Casts Few /LPF (NONE-FEW) Urine Mucus None /HPF (NONE-FEW) EKG/Imaging Imaging Results: CT scan of the abdomen/pelvis was obtained. The results of the study are SOB secondary to cecal mass with transition point at terminal ileum. There is air in the rectum. The study was read by the radiologist. I viewed the images myself on the PACS system. ED Course/Re-evaluation ED Course This is a 76-year-old female with known metastatic cecal cancer and a newly diagnosed small bowel obstruction. She is currently comfortable, and her abdomen is not distended. I spoke with the patient at length about her wishes whether or not she would consider having any type of surgical palliative intervention. She was like to discuss it with her son who lives in [place]. I spoke with Dr. Mi who will discuss surgical options with the patient. In the meantime I'm going to decompress her small bowel but placing an NG tube. I' m also replacing her potassium with IV potassium and starting her on IV fluids while she is nothing by mouth. While she continues to decide on surgical options , she will be admitted to medicine with an NG tube for decompression of the bowel, IV fluids, and pain management. Decision to Disposition Date: September 09, 2017 Decision to Disposition Time: 18:46 Depart Departure Latest Vital Signs Vital Signs Date Time Temp Pulse Resp B/P (MAP) Pulse Ox O2 Delivery O2 Flow Rate FiO2 09/09/17 16:05 102 09/09/17 16:00 153/77 (102) 09/09/17 15:50 87 09/09/17 14:02 97.9 18 Impression: Primary Impression: Small bowel obstruction Additional Impression: Hypokalemia Condition: Improved Disposition: Admitted from ER Referrals: JENNIFER BENTLEY (PCP) Problem Qualifiers JOSE JUAN KHALIL MD September 09, 2017 13:56
[2017-09-09] MEDS ORDERED: ONDANSETRON 4 MG/2 ML VIAL ONE (14:04)
[2017-09-09] MEDS ORDERED: MORPHINE 4 MG/ML SDV IVP ONE (14:40)
[2017-09-09 14:54] LABS: PLATELET COUNT, AUTOMATED 536 K/uL (150-450)
[2017-09-09] MEDS ORDERED: IOPAMIDOL 76% 75 ML INFUS BTL 75 ML ONE (15:12)
--- NOTE | 2017-09-09 15:49 | RADIOLOGY IMAGING REPORT ---
FACILITY: [facility] PATIENT NAME: Cassia Nathan : 1940 MR: [id number] V: [id number] EXAM DATE: ORDERING PHYSICIAN: JOSE JUAN KHALIL TECHNOLOGIST: Location: [facility] [place] Patient: Cassia Nathan : 1940 Visit/Account:[id number] Date of Sevice: 09/09/2017 ABDOMEN/PELVIS WITH CONTRAST HISTORY: Colon cancer with abdomen pain and vomiting TECHNIQUE: Following administration of IV contrast contiguous axial images acquired through the abdom en/pelvis. Coronal and sagittal reformatting also performed. Dose Lowering Technique One of the following dose optimization techniques was utilized in the performance of this exam: Autom ated exposure control; adjustment of the mA and/or kV according to the patient's size; or use of an i terative reconstruction technique. Specific details can be referenced in the facility's radiology C T exam operational policy. CONTRAST: 75 mL Isovue-370 COMPARISON: August 28, 2017 FINDINGS: Visualized lung bases: Small left pleural effusion is slightly increased when compared to the prior study. There is adjacent airspace consolidation the left lower lobe likely compressive atelectasis. There is chronic atelectasis in the inferior right middle lobe and lingula. Right pericardial metastasis minimally increased now measuring 2.7 cm as opposed to 2.6 cm previously Hepatobiliary: Extensive hepatic metastases appear relatively unchanged biliary ductal dilatation in the left hepatic lobe is similar to the prior study. Gallbladder wall appears thickened with a smal l amount of adjacent pericholecystic fluid. Spleen: Negative. Adrenals: Negative. Pancreas: Negative. Kidneys ureters or bladder: Negative. Genitalia: Atrophic appearing uterus GI: Cecal mass again seen consistent with patient's reported colon cancer. There is now severe narr owing and enhancement at the terminal ileum with fluid-filled dilated loops of small bowel most promi nent in the lower mid abdomen also involving the ileum measuring up to 4.4 cm in diameter. The more proximal small bowel appears decompressed. Vessels/spaces/nodes: Numerous peritoneal implants again noted. There is a small amount of abdomina l and pelvic ascites. Extensive vascular calcifications again noted throughout the abdomen pelvis wi th aneurysmal dilatation of infrarenal abdominal aorta measuring 3.2 x 3.4 cm Bones/soft tissues: No aggressive appearing bone lesions are seen Additional findings: None pertinent. IMPRESSION: Findings are consistent with a small bowel obstruction. The transitional point is at the terminal il eum as it contacts the large cecal mass. The more proximal small bowel appears decompressed. Numerous peritoneal implants and extensive hepatic metastases appear some are to the prior study Small amount of abdominal pelvic ascites Small left pleural effusion is slightly increased in size with increasing compressive atelectasis lef t lower lobe. Right pericardial metastasis minimally increased Results were called to JOSE JUAN KHALIL at 09/09/2017 3:44 PM. Report Dictated By: Jana Springer MD at 09/09/2017 3:31 PM Report E-Signed By: Jana Springer MD at 09/09/2017 3:44 PM [id number]
[2017-09-09] MEDS ORDERED: KCL/D1/2NS 20 MEQ 1000 ML 1,000 ML IV SCH (17:55)
[2017-09-09] MEDS ORDERED: NS(*) 0.9% 1000 ML BAG 1,000 ML IV PRN (18:30)
[2017-09-09] MEDS ORDERED: KCL (*) 20 MEQ/100 ML PREMIX 100 ML IV ONE (18:30)
--- NOTE | 2017-09-09 18:57 | History & Physical ---
History of Present Illness Chief Complaint Nausea, vomiting and abdominal pain History of Present Illness Mrs. Nathan is a 76-year-old female with known metastatic cecal cancer and HTN. She last underwent chemotherapy approximately 15 months ago. At that time she and her family made the decision that she would go on hospice care. She remained on hospice for 5 months at which point she did well and was released from hospice. She recently been on a trip to [facility] and developed a partial small bowel obstruction. Today she started with worsening abdominal pain, nausea , one episode of vomiting, and has not passed gas in the last few hours. She also has not been taking anything by mouth. Her mentioned that she has lost approximately 10 pounds in the past month. She was otherwise in good spirits and has no other complaints other then continued generalized weakness which she has had for the p spoke with the patient at length about her wishes whether or not she would consider having any type of surgical palliative intervention. She was like to discuss it with her son who lives in [place]. spoke with Dr. Mi who will discuss surgical options with the patient. In the meantime I'm going to decompress her small bowel by placing an NG tube. Patient received IV potassium in the ER and was started her on IV fluids. I discussed the case with the ER-MD and Dr Barrow at length regarding the initial plan. I will admit the patient for further evaluation and management for her bowel obstruction. I discussed the case with her at length and explained the current condition and the plan. History Home Meds Active Scripts Oxycodone Hcl (OXYCODONE HCL) 5 Mg Tablet, 5 MG PO Q4-6H Y for PAIN, #20 TAB Prov:[facility] 08/28/17 Reported Medications Amlodipine Besylate (AMLODIPINE BESYLATE) 5 Mg Tablet, 1 TAB PO QDAY, TAB 08/28/17 Bisacodyl (Women's Gentle Laxative) 5 Mg Tablet.dr, PO Q8H Y for CONSTIPATION 08/28/17 Lactulose (LACTULOSE) 10 Gm/15 Ml Solution, 20 ML PO Q8H Y for CONSTIPATION 08/28/17 Megestrol Acetate (MEGACE ES) 625 Mg/5 Ml Oral.susp, 160 MG PO DAILY 08/28/17 Tramadol Hcl (TRAMADOL HCL) 50 Mg Tablet, 50-150 MG PO Q4-6H Y for PAIN, TAB 08/28/17 Allergies: Coded Allergies: diphenhydramine (Verified Adverse Reaction, Intermediate, RASH, 09/09/17) Patient History: Patient reports no known family medical history. Hx Smoking: Yes Smoking Status: Former Smoker Exposure to Second Hand Smoke?: Yes Caffeine Intake: Coffee Caffeine/Cups Per Day: 2 Hx Alcohol Use: No Hx Substance Use Disorder: No Social Drug Use: Never Review of Systems Constitutional: Weight Loss, No Weight Gain, No Chills Neurological: Weakness, No Confusion, No Dizziness Cardiovascular: No Chest Pain, No Palpitations Respiratory: No Shortness of Breath, No Cough Gastrointestinal: Nausea, Vomiting, No Diarrhea, No Dysphagia, No Constipation , No Early Satiety, No Hematemesis, No Hematochezia, No Melena, Abdominal Pain Genitourinary: No Dysuria, No Hematuria Musculoskeletal: No Pain, No Sprain, No Strain, No Impaired Mobility Psychiatric: No Depression, No Anxiety Exam Vital Signs Vital Signs Date Time Temp Pulse Resp B/P (MAP) Pulse Ox O2 Delivery O2 Flow Rate FiO2 09/09/17 20:46 99.3 103 16 165/73 (103) 90 Room Air General Appearance: Alert, Awake, No Acute Distress, Afebrile Neuro: No Gross deficits Eyes: PERRLA ENT: Normal Cardiovascular: Normal Rhythm & Peripheral Pulses, No JVD Respiratory: No Respiratory Distress Chest: Other (R-port a cath) GI: Abd Soft and Non-Tender (mildly distended) Extremities: Soft and Non Tender, Edema Integumentary: Skin Intact without Lesion / Mass Psych: Alert & Oriented X3, Appropriate Mood & Affect (seems depressed) Medical Decision Making Data Points Result Diagram: 09/09/17 1420 09/09/17 1420 Pre-Admit Course ED Medications reviewed Medical Record Review: Yes Assessment and Plan Problems: (1) Small bowel obstruction Status: Acute Assessment & Plan: Partial vs complete most likely due to cecal mass I will admit the patient for further evaluation and management for SBO I will place NGT on intermittent suction I will start IVF D5NS at 150ml/h I will start Zofran 4mg In q6h as needed for nausea Protonix 40mg IV qd for GIP I will start Lovenox 40mg SQ qd for DVTP Surgical consult in am and I have discussed the case with Dr. Barrow Patient is a full code (2) Hypokalemia Status: Acute Assessment & Plan: I will replace her with KCL I will repeat BMP in am I will check her Mag level in am (3) Cancer of cecum Status: Chronic Assessment & Plan: Terminal Cecal cancer with distant metastasis Contnue present management (4) Hypertension Status: Chronic Assessment & Plan: Her BP has been on the high side. She did not take her today 's medication. I will start Clonidine 0.2mg patch q weekly I will use Metoprolol 5mg IV for HR>120 as needed q 12h Central Venous Access Medical Necessity for Access: IV Access Condition guarded Time Spent on Plan of Care: > 30 min Copies to: KYLE WILSON PRINCIPAL TECHNICAL SPECIALIST-BC, ONC; JENNIFER BENTLEY PRINCIPAL TECHNICAL SPECIALIST; JORDI BARROW MD Venous Thromboembolism VTE Risk Physician Assess for VTE Risk: Yes Patient's VTE Risk: High VTE Diagnostic Test 2 Days Prior to Admit: No Antithrombotics Is Pt On Any Antithrombotics?: No Exam Sepsis Risk: No Definite Risk BRISEYDA PEDRO MD September 09, 2017 18:57
--- NOTE | 2017-09-09 19:24 | RADIOLOGY IMAGING REPORT ---
FACILITY: [facility] [place] PATIENT NAME: Cassia Nathan : 1940 MR: [id number] V: [id number] EXAM DATE: ORDERING PHYSICIAN: JOSE JUAN KHALIL TECHNOLOGIST: Location: [facility] [place] Patient: Cassia Nathan : 1940 Visit/Account:[id number] Date of Sevice: 09/09/2017 Examination: CHEST SINGLE AP Comparison: 08/28/2017 and earlier. History: Nasogastric tube placement. Cancer. Findings: Right internal jugular access infusion port with the tip in the region of the mid superior vena cava. Nasogastric tube tip is in the upper thoracic esophagus. Cardiac and hilar contour is prominent but unchanged. Aortic atherosclerosis. Pulmonary nodules are likely little change since the CT. Bilateral infrahilar streaky density. No con solidation is otherwise identified. No pneumothorax or effusion. No acute osseous abnormality. IMPRESSION: 1. Malpositioned nasogastric tube terminating in the upper thoracic esophagus. 2. Bilateral pulmonary nodules. 3. Infrahilar streaky density is suggestive of atelectasis although aspiration is a possibility as we ll. Results were discussed with Dr. Dacosta at 09/09/2017 7:21 PM. Report Dictated By: Manny Salinas MD at 09/09/2017 7:14 PM Report E-Signed By: Manny Salinas MD at 09/09/2017 7:21 PM WSN:[id number]
--- NOTE | 2017-09-09 20:05 | RADIOLOGY IMAGING REPORT ---
FACILITY: [facility] PATIENT NAME: Cassia Nathan : 1940 MR: [id number] V: [id number] EXAM DATE: ORDERING PHYSICIAN: JOSE JUAN KHALIL TECHNOLOGIST: Location: [facility] Patient: Cassia Nathan : 1940 Visit/Account:[id number] Date of Sevice: 09/09/2017 Examination: CHEST SINGLE AP Comparison: Earlier the same day. History: Nasogastric tube repositioning. Findings: The nasogastric tube has been repositioned with the tip now in the distal esophagus, not th e stomach. Chest is otherwise unchanged. IMPRESSION: Nasogastric tube now extends into the distal esophagus. Report Dictated By: Manny Salinas MD at 09/09/2017 8:00 PM Report E-Signed By: Manny Salinas MD at 09/09/2017 8:01 PM WSN:[id number]
[2017-09-09 20:46] VITALS: BP 165/73
--- NOTE | 2017-09-09 20:47 | RADIOLOGY IMAGING REPORT ---
FACILITY: [facility] PATIENT NAME: Cassia Nathan : 1940 MR: [id number] V: [id number] EXAM DATE: ORDERING PHYSICIAN: JOSE JUAN KHALIL TECHNOLOGIST: Location: [facility] [place] Patient: Cassia Nathan : 1940 Visit/Account:[id number] Date of Sevice: 09/09/2017 EXAMINATION: Portable AP Chest HISTORY: NG placement. COMPARISON: Prior study of earlier today at 19:39. FINDINGS: NG tube has been advanced. Tip now overlies the stomach in the left upper abdomen. Remainder of the exam is unchanged. Known pulmonary nodules appear grossly stable. Mild left basilar atelectasis. No pleural effusion or pneumothorax. Normal cardiomediastinal silhouette. Right IJ CVC t ip overlies the low SVC. IMPRESSION: NG tube tip in the stomach. Report Dictated By: Margarito Carrizales MD at 09/09/2017 8:41 PM Report E-Signed By: Margarito Carrizales MD at 09/09/2017 8:44 PM WSN:[id number]
[2017-09-09] MEDS ORDERED: ONDANSETRON 4 MG/2 ML VIAL IVP PRN (22:35)
[2017-09-09] MEDS ORDERED: ACETAMINOPHEN 160 MG/5 ML UDC FT PRN (22:35)
[2017-09-09] MEDS ORDERED: MORPHINE IV PRN (22:40)
[2017-09-09] MEDS ORDERED: METOPROLOL TART 5 MG/5 ML VIAL IVP PRN (22:45)
[2017-09-09] MEDS: D5NS(*) 1000 ML BAG 1,000 ML IV PRN (22:47)
[2017-09-09] MEDS ORDERED: cloNIDine HCL 0.2 MG TDSY TD SCH (23:00)
[2017-09-09 23:19] VITALS: BP 154/66
[2017-09-10] VITALS (7 sets, daily range): BP systolic 153–181; BP diastolic 67–84; Ht 152.4 cm; Wt 43.5 kg
[2017-09-10] MEDS: D5NS(*) 1000 ML BAG 1,000 ML IV PRN ×2 (05:54→18:35)
[2017-09-10] MEDS ORDERED: DRON2.5C11 PO (05:58)
[2017-09-10 06:28] LABS: PLATELET COUNT, AUTOMATED 430 K/uL (150-450)
[2017-09-10] MEDS ORDERED: MORPHINE 4 MG/ML SDV IV PRN (07:30)
[2017-09-10] MEDS ORDERED: ACETAMINOPHEN 160 MG/5 ML UDC FT PRN (07:30)
--- NOTE | 2017-09-10 07:31 | General Surgery Consultation ---
History of Present Illness Requesting Physician Dr. Aguirre, Hospitalist Service Reason for Consult Bowel obstruction Chief Complaint Abdominal pain History of Present Illness 76yo female with stage IV cecal cancer presents with 2 days of increasing abdominal pain, bloating, and N/V. Her cancer was diagnosed 2 years ago and was advanced and stage IV with liver mets at the time of diagnosis and so she was started on neoadjuvant chemotherapy. She didn't tolerated chemotherapy and different regimens were tried but her quality of life was compromised to the degree that she ultimately elected to stop treatment and proceed with hospice care about 18 months ago. She has been slowly declining and several days ago began feeling increased bloating and abdominal pain with nausea prompting her to come in to the ER for evaluation and a CT revealed the bowel obstruction in her TI related to her cecal tumor. Her liver mets have markedly progressed and are occupying a significant volume of her liver. She is passing small amounts of flatus and her last BM was yesterday morning after prune juice and laxatives. History Problems: (1) Adenocarcinoma of cecum, stage 4b Status: Chronic (2) Hyperlipidemia Status: Chronic (3) PUD (peptic ulcer disease) Status: Chronic (4) Poor nutrition Status: Chronic (5) Hypertension Status: Chronic (6) Cancer of cecum Status: Chronic Home Meds Active Scripts Oxycodone Hcl (OXYCODONE HCL) 5 Mg Tablet, 5 MG PO Q4-6H Y for PAIN, #20 TAB Prov:BIANCA REYES [facility] 08/28/17 Reported Medications Dronabinol (DRONABINOL) 2.5 Mg Capsule, 2.5 MG PO BID 09/10/17 Amlodipine Besylate (AMLODIPINE BESYLATE) 5 Mg Tablet, 1 TAB PO QDAY, TAB 08/28/17 Bisacodyl (Women's Gentle Laxative) 5 Mg Tablet.dr, PO Q8H Y for CONSTIPATION 08/28/17 Tramadol Hcl (TRAMADOL HCL) 50 Mg Tablet, 50-150 MG PO Q4-6H Y for PAIN, TAB 08/28/17 Discontinued Reported Medications Lactulose (LACTULOSE) 10 Gm/15 Ml Solution, 20 ML PO Q8H Y for CONSTIPATION 08/28/17 Megestrol Acetate (MEGACE ES) 625 Mg/5 Ml Oral.susp, 160 MG PO DAILY 08/28/17 Allergies: Coded Allergies: diphenhydramine (Verified Adverse Reaction, Intermediate, RASH, 5/16/18) Family History: Patient reports no known family medical history. Review of Systems All Systems Reviewed/Normal: Yes, Except as Noted Constitutional: Weight Loss Neurological: Weakness, Dizziness Gastrointestinal: Nausea, Abdominal Pain Exam Vital Signs Vital Signs Date Time Temp Pulse Resp B/P (MAP) Pulse Ox O2 Delivery O2 Flow Rate FiO2 09/10/17 04:10 98.9 88 16 153/84 (107) 96 Nasal Cannula 1.0 General Appearance: Alert, Awake, No Acute Distress, Afebrile GI: Abd Soft and Non-Tender (Abdominal exam is benign currently.) Extremities: Warm, Perfused Medical Decision Making Data Points Result Diagram: 09/10/17 0535 09/10/17 0535 Assessment and Plan Problems: (1) Small bowel obstruction Status: Acute Assessment & Plan: 09/10/17: SBO due to advanced cecal cancer. She is admitted to the hospitalist service. She has been started on conservative management with NG tube decompression and IV fluids. Our options are limited if she fails to resolve with conservative management and I suspect she WON'T respond to conservative management since it is likely the cancer that is causing the obstruction. The only reasonable option at this point, especially in the context of hospice, is a diverting loop ileostomy proximal to the obstruction. Other than this, comfort measures are the only other feasible alternative. Resection of the tumor is not recommended as this would a require increased risk of complications and suffering with risk of anastomotic leak due to malnutrition. Loop ileostomy will resolve the obstruction but will require stoma care until the cancer unfortunately claims her life. These options have been explained to the patient and her in detail and they would like to consider her options and discuss them with their son. I will speak with them this evening when I round again and see how they would like to proceed. (2) Adenocarcinoma of cecum, stage 4b Status: Chronic Central Venous Access Medical Necessity for Access: IV Access Condition Stable. Time Spent: < 30 min Venous Thromboembolism Antithrombotics Is Pt On Any Antithrombotics?: No JORDI BARROW MD September 10, 2017 07:31
[2017-09-10] MEDS: PANTOPRAZOLE SOD 40 MG IV VIAL IVP SCH (08:37)
[2017-09-10] MEDS: ENOXAPARIN 40 MG/0.4ML SYR SC SCH (08:42)
[2017-09-10] MEDS: KCL (*) 20 MEQ/100 ML PREMIX 100 ML IV SCH ×2 (08:47→11:12)
--- NOTE | 2017-09-10 10:22 | Hospitalist Progress Note ---
Subjective Progress Notes Subjective She denies nausea or abdominal pain. Physical Exam Vital Signs Date Time Temp Pulse Resp B/P (MAP) Pulse Ox O2 Delivery O2 Flow Rate FiO2 09/10/17 08:57 92 Room Air 09/10/17 07:31 98.1 91 16 167/73 (104) 09/10/17 04:10 1.0 Intake and Output 09/11/17 07:00 # Voids 1 General Appearance: Alert, Awake, No Acute Distress GI: Soft and Non-Tender Result Diagram: 09/10/17 0535 09/10/17 0535 Assessment and Plan Problems: (1) Small bowel obstruction Status: Acute Assessment & Plan: She presented with 2 days of abdominal pain and vomiting. She was found to have an obstruction at the terminal ileum related to the cecal tumor. Dr. Groves is in discussion with the family about options. Continue the NG and IVF. (2) Hypokalemia Status: Acute Assessment & Plan: Likely, secondary to vomiting. Will Continue IV replacement and follow. (3) Cancer of cecum Status: Chronic Assessment & Plan: Terminal Cecal cancer with hepatic metastasis. She didn't tolerate chemotherapy. She has been in Hospice care previously. Likely, she will need it again. Will consult . (4) Hypertension Status: Chronic Assessment & Plan: Clonidine patch started. Labetalol prn. Central Venous Access Medical Necessity for Access: IV Access Exam Sepsis Risk: No Definite Risk MONICA KENNEDY MD September 10, 2017 10:22
[2017-09-10] MEDS: LABETALOL HCL 100 MG/20ML VIAL IVP PRN ×3 (11:06→23:21)
[2017-09-11] VITALS (7 sets, daily range): BP systolic 104–176; BP diastolic 54–78
[2017-09-11 06:06] LABS: PLATELET COUNT, AUTOMATED 411 K/uL (150-450)
--- NOTE | 2017-09-11 08:28 | General Surgery Progress Note ---
Subjective Progress Notes Subjective No abdominal complaints. She wants the NG tube out. Physical Exam Vital Signs Date Time Temp Pulse Resp B/P (MAP) Pulse Ox O2 Delivery O2 Flow Rate FiO2 09/11/17 07:31 92 09/11/17 07:31 Room Air 09/11/17 07:04 98.6 76 19 164/73 (103) 09/11/17 04:32 1.0 Intake and Output 09/12/17 07:00 Intake Total 30 ml Balance 30 ml Tube Irrigant 30 ml General Appearance: Alert, Awake, No Acute Distress, Afebrile GI: Soft and Non-Tender Extremities: Warm, Perfused Result Diagram: 09/11/17 0549 09/11/17 0549 Assessment and Plan Problems: (1) Small bowel obstruction Status: Acute Assessment & Plan: 09/10/17: SBO due to advanced cecal cancer. She is admitted to the hospitalist service. She has been started on conservative management with NG tube decompression and IV fluids. Our options are limited if she fails to resolve with conservative management and I suspect she WON'T respond to conservative management since it is likely the cancer that is causing the obstruction. The only reasonable option at this point, especially in the context of hospice, is a diverting loop ileostomy proximal to the obstruction. Other than this, comfort measures are the only other feasible alternative. Resection of the tumor is not recommended as this would a require increased risk of complications and suffering with risk of anastomotic leak due to malnutrition. Loop ileostomy will resolve the obstruction but will require stoma care until the cancer unfortunately claims her life. These options have been explained to the patient and her in detail and they would like to consider her options and discuss them with their son. I will speak with them this evening when I round again and see how they would like to proceed. 09/11/17: Continued SBO due to growing cecal cancer. Long discussion with patient, , and son (via Facetime) and they would like to proceed with diverting loop ileostomy as part of her palliative care regimen to relieve her obstruction and allow her to eat and relieve her abdominal symptoms due to the obstruction. I have, again, explained the procedure to them in great detail as well as alternatives and risks and their questions have been answered. They would like to proceed with diverting loop ileostomy. Will add this on for tomorrow morning. (2) Adenocarcinoma of cecum, stage 4b Status: Chronic Central Venous Access Medical Necessity for Access: IV Access Condition Stable. Time Spent: < 30 min Exam Sepsis Risk: No Definite Risk JORDI BARROW MD September 11, 2017 08:28
[2017-09-11] MEDS: PANTOPRAZOLE SOD 40 MG IV VIAL IVP SCH (09:04)
[2017-09-11] MEDS: ENOXAPARIN 40 MG/0.4ML SYR SC SCH (09:04)
[2017-09-11] MEDS: D5NS(*) 1000 ML BAG 1,000 ML IV PRN ×2 (09:36→22:56)
--- NOTE | 2017-09-11 10:23 | Hospitalist Progress Note ---
Subjective Progress Notes Subjective This patient was admitted for a small bowel obstruction. She is scheduled for surgery tomorrow. Patient Complains of: Cardiovascular: No: Chest Pain Respiratory: No: Shortness of Breath Physical Exam Vital Signs Date Time Temp Pulse Resp B/P (MAP) Pulse Ox O2 Delivery O2 Flow Rate FiO2 09/11/17 07:31 92 09/11/17 07:31 Room Air 09/11/17 07:04 98.6 76 19 164/73 (103) 09/11/17 04:32 1.0 Intake and Output 09/12/17 07:00 Intake Total 186 ml Balance 186 ml IV Total 126 ml Tube Irrigant 60 ml # Voids 1 Cardiovascular: Regular Rate and Rhythm Respiratory: Clear to Auscultation Result Diagram: 09/11/17 0549 09/11/17 0549 Assessment and Plan Problems: (1) Small bowel obstruction Status: Acute Assessment & Plan: Dr. Groves is planning for surgical intervention tomorrow. Her Lovenox has been placed on hold. (2) Hypokalemia Status: Acute Assessment & Plan: Resolved with supplementation. (3) Cancer of cecum Status: Chronic Assessment & Plan: Terminal Cecal cancer with hepatic metastasis. She didn't tolerate chemotherapy. She has been in Hospice care previously. (4) Hypertension Status: Chronic Assessment & Plan: She is on chronic treatment with a clonidine patch, which is currently in place. She is also ordered to receive labetalol as needed. Central Venous Access Medical Necessity for Access: IV Access Exam Sepsis Risk: No Definite Risk Problem Qualifiers (1) Hypertension: Hypertension type: essential hypertension Qualified Codes: I10 - Essential ( primary) hypertension JORDI LESTER DO September 11, 2017 10:23
[2017-09-11] MEDS: LABETALOL HCL 100 MG/20ML VIAL IVP PRN (11:06)
--- NOTE | 2017-09-11 11:09 | Medical Nutrition Therapy ---
Nutrition Anthropometrics Height (Inches): 60.00 Height (Calculated Centimeters: 152.193386 Weight (Pounds): 96 Weight (Calculated Kilograms): 43.715 BMI Calculated: 18.75 Jaiden Nutrition Score: Probably Inadequate Jaiden Nutrition Risk Score: 18 Dietary Referral Nutrition Risk Factors: Unplanned Loss >10lbs, Diff. Swallowing, Recent Nutrition Impact Nutrition Risk Comment: Physical Findings Physical Appearance: Underweight BMI<19 Skin Appearance Skin Appearance: Edema Edema Location Modifier: Both Edema Location: Lower Extremity Type of Edema: Degree of Edema: 2+ Gastrointestinal Symptoms GI Symtoms: Appetite Changes, Bloating, Change in Bowel Pattern Tube Present: NG Bowel Sounds: Recent Bowel Pattern: Stool Characteristics: Hard Nutritional Diagnosis Nutritional Risk Acuity 1: GI Obstruction Nutritional Risk Acuity 3: Weight Loss, Cancer Past Medical History: CAD, hypercholesterolemia, HTN, PUD, stage 4b adenocarcinoma of cecum, SBO Nutritional Acuity: 1-High Nutrition Diagnosis: Altered GI Function Nutrition Etiology: Physiological Causes Nutrition Problem/Etiology/Sym: Altered GI function related to physiological causes AEB two days NPO diet. Energy Requirement: 1331 (Gurley-St.Jeor 853 X AF 1.3 X 1.2 SF 1331) Adjusted Energy Requirement Re: 48 (1.1g/kg 45.715 ) Fluid Requirement: 1331 (1 ml/kcal) Nutrition Intervention: Cont diet as ordered, Encourage intake, Change diet Nutrition Monitoring & Eval Nutrition Goals: Advance to KLARISSA/REG RD Patient Assessment Time: [address] Assessment Type: RD Assessment Patient Nutrition Acuity: 1-High Follow Up Date: September 13, 2017 Nutritional Comment: 09/10 Pt admitted for SBO. Pt is experencing abdominal pain, N/V and gas. Pt is on NPO diet, along with fluid and K+ IV. Pt has continue to decline since admission. Dr. evangelista states that SBO is related to her cancer and poor nutrition. Only safe opition at this time is ileostomy proximal to the obstruction. Notable labs are low Na 136, low K+ 3.2 and low BUN 4. Continue to monitor pt progress and medical desionons related to ileostomy with the possible need of nutrtion eduation. Follow up wuth pt 09/11. MT 09/11 Pt continues day two on NPO diet. Notable labs indicate low alb 2.1. Pt continues to experience N/V and abdominal pain. Dr. evangelista states that pt was on hospice due to pt not being able to tolerate chemo awhile back, and may need to go back on hospice again. Pt may benefit from nutriton support or comfort care. Pt is also scheduled for surgical ileostomy tomorrow per Dr. evangelista. (09/12). Continue to monitor pt progress and will follow up 09/12. BENY GONZALEZ September 11, 2017 08:59
[2017-09-11] MEDS: MORPHINE 4 MG/ML SDV IV PRN ×2 (13:46→22:05)
[2017-09-12] VITALS (16 sets, daily range): BP systolic 136–174; BP diastolic 61–118
[2017-09-12] MEDS ORDERED: NORMOSOL R SOLN(*) 1000 ML BAG 1,000 ML IV ONE (06:00)
[2017-09-12] MEDS ORDERED: DEXAMETHASONE SOD 4 MG/ML VIAL ONE (06:46)
[2017-09-12] MEDS ORDERED: LIDOCAINE MPF 1% 5 ML VIAL ONE (06:46)
[2017-09-12] MEDS ORDERED: ONDANSETRON 4 MG/2 ML VIAL ONE (06:46)
[2017-09-12] MEDS ORDERED: PROPOFOL EMUL(*) 10MG/ML 20 ML 20 ML ONE (06:46)
[2017-09-12] MEDS ORDERED: ROPIVACAINE 0.5% 20 ML VIAL ONE ×2 (07:27→09:15)
[2017-09-12] MEDS ORDERED: ROPIVACAINE 0.2% 20 ML VIAL ONE (07:27)
[2017-09-12] MEDS ORDERED: MIDAZOLAM 2 MG/2 ML VIAL ONE (07:29)
--- NOTE | 2017-09-12 08:17 | General Surgery Progress Note ---
Subjective Progress Notes Subjective No complaints. Feeling pretty good, not passing much flatus, no BM. Physical Exam Vital Signs Date Time Temp Pulse Resp B/P (MAP) Pulse Ox O2 Delivery O2 Flow Rate FiO2 09/12/17 06:52 99.2 80 16 152/64 (93) 97 Nasal Cannula 1.0 General Appearance: Alert, Awake, No Acute Distress, Afebrile GI: Other (Soft, mild diffuse TTP) Extremities: Warm, Perfused Result Diagram: 09/11/17 0549 09/11/17 0549 Assessment and Plan Problems: (1) Small bowel obstruction Status: Acute Assessment & Plan: 09/10/17: SBO due to advanced cecal cancer. She is admitted to the hospitalist service. She has been started on conservative management with NG tube decompression and IV fluids. Our options are limited if she fails to resolve with conservative management and I suspect she WON'T respond to conservative management since it is likely the cancer that is causing the obstruction. The only reasonable option at this point, especially in the context of hospice, is a diverting loop ileostomy proximal to the obstruction. Other than this, comfort measures are the only other feasible alternative. Resection of the tumor is not recommended as this would a require increased risk of complications and suffering with risk of anastomotic leak due to malnutrition. Loop ileostomy will resolve the obstruction but will require stoma care until the cancer unfortunately claims her life. These options have been explained to the patient and her in detail and they would like to consider her options and discuss them with their son. I will speak with them this evening when I round again and see how they would like to proceed. 09/11/17: Continued SBO due to growing cecal cancer. Long discussion with patient, , and son (via Facetime) and they would like to proceed with diverting loop ileostomy as part of her palliative care regimen to relieve her obstruction and allow her to eat and relieve her abdominal symptoms due to the obstruction. I have, again, explained the procedure to them in great detail as well as alternatives and risks and their questions have been answered. They would like to proceed with diverting loop ileostomy. Will add this on for tomorrow morning. 09/12/17: Will proceed with diverting loop ileostomy this morning. Pt and her wish to proceed. (2) Adenocarcinoma of cecum, stage 4b Status: Chronic Central Venous Access Medical Necessity for Access: IV Access Condition Stable. Time Spent: < 30 min Exam Sepsis Risk: No Definite Risk JORDI BARROW MD September 12, 2017 08:17
[2017-09-12] MEDS ORDERED: fentaNYL CITR 100 MCG/2 ML AMP ONE ×2 (08:24→11:20)
[2017-09-12] MEDS ORDERED: SUGAMMADEX SOD 200 MG/2 ML SDV ONE (08:25)
[2017-09-12] MEDS: PANTOPRAZOLE SOD 40 MG IV VIAL IVP SCH (09:11)
--- NOTE | 2017-09-12 09:51 | Hospitalist Progress Note ---
Subjective Progress Notes Subjective This patient is scheduled for surgery this morning. She had no acute events overnight. Patient Complains of: Cardiovascular: No: Chest Pain Respiratory: No: Shortness of Breath Physical Exam Vital Signs Date Time Temp Pulse Resp B/P (MAP) Pulse Ox O2 Delivery O2 Flow Rate FiO2 09/12/17 06:52 99.2 80 16 152/64 (93) 97 Nasal Cannula 1.0 Cardiovascular: Regular Rate and Rhythm Respiratory: Clear to Auscultation Result Diagram: 09/11/1749 09/11/1749 Assessment and Plan Problems: (1) Small bowel obstruction Status: Acute Assessment & Plan: She is scheduled for surgery today. Her Lovenox has been placed on hold. (2) Hypokalemia Status: Acute Assessment & Plan: Resolved with supplementation. (3) Cancer of cecum Status: Chronic Assessment & Plan: Terminal Cecal cancer with hepatic metastasis. She didn't tolerate chemotherapy. She has been in Hospice care previously. (4) Hypertension Status: Chronic Assessment & Plan: She is on chronic treatment with a clonidine patch, which is currently in place. She is also ordered to receive labetalol as needed. Central Venous Access Medical Necessity for Access: IV Access Exam Sepsis Risk: No Definite Risk Problem Qualifiers (1) Hypertension: Hypertension type: essential hypertension Qualified Codes: I10 - Essential ( primary) hypertension JORDI LESTER DO September 12, 2017 09:51
--- NOTE | 2017-09-12 11:55 | Post Operative Progress Note ---
Post Operative Progress Note Date: September 12, 2017 Time: 10:49 Surgeon: Yaneli Dictation number: [id number] Anesthesia: GETA by Dr. Gonzales Pre-Op Diagnosis: Obstructing Stage IV Cecal Cancer Post-Op Diagnosis: YULIYA Findings: C/W dx Procedure(s): Laparoscopic Loop Ileostomy Specimen Removed:(May be N/A): None Complications: None Fluids: See anesthesia record Estimated Blood Loss: Minimal Date OP Note Dictated: September 12, 2017 Time OP Note Dictated: 10:59 JORDI BARROW MD September 12, 2017 10:59
[2017-09-12] MEDS: MORPHINE 4 MG/ML SDV IV PRN ×2 (13:38→21:41)
--- NOTE | 2017-09-12 14:51 | OPERATIVE REPORT 1 ---
EVENT DATE: September 12, 2017 SURGEON: Lev Groves MD ANESTHESIOLOGIST: Lev Gonzales MD ANESTHESIA: General endotracheal anesthesia. PREOPERATIVE DIAGNOSIS Obstructing cecal cancer, stage IV. POSTOPERATIVE DIAGNOSIS Obstructing cecal cancer, stage IV. PROCEDURE PERFORMED Diverting loop ileostomy. COMPLICATIONS None. CONDITION Stable. BLOOD LOSS Minimal. FINDINGS On gross inspection of the intra-abdominal cavity, I did not appreciate any peritoneal studding, but the liver obviously was very nodular and consistent with metastatic cancer. There was the large cecal tumor, but the small bowel was not overly distended, although she has been decompressed for the last couple of days. The tumor in the cecum did appear to be extramural. SPECIMENS None. INDICATIONS This is a 76-year-old female who initially presented to me around two years ago with blood per rectum. Colonoscopy was completed, and I found a cecal cancer. In preparation for possible resection, I got a CT scan for staging, but unfortunately, it revealed unresectable liver metastases including down near the main vasculature of the liver. She was started on neoadjuvant chemotherapy , but did not tolerate this, and had been tried on a couple of different regimens, but did not tolerate any of them, and ultimately elected to stop treatment. She came into our Emergency Room complaining of increasing abdominal distention and pain with nausea. A CT scan was consistent with a bowel obstruction right in the terminal ileum in the area of the cecal cancer. With little other options available, and although she has elected for palliative care only, I discussed the option of a diverting loop ileostomy to bypass the obstruction and allow her to eat. After taking time to discuss this with her family, she would like to proceed with this procedure. DESCRIPTION OF PROCEDURE The patient was brought to the operating room, placed supine on the operating table. General endotracheal anesthesia was administered, and her abdomen was prepped and draped in a sterile fashion. Timeout was completed. I injected her right subcostal skin with 0.5% ropivacaine plain and made a 5 mm transverse incision in the right subcostal skin. I used the Veress needle hooked up to the insufflation, then penetrated the peritoneal cavity, and insufflated it to a pressure of 15 mmHg. I then used the 5 mm optical trocar with a camera inside and focused and inserted the first port into this incision into the insufflated peritoneal cavity without any problems and under direct visualization. Once the camera was inserted and focused, I tried to identify the terminal ileum, but other loops of small bowel were covering it as was omentum, and so I put in a second 5 mm port more laterally and inferiorly into the patient's right mid abdomen under direct visualization. I used an atraumatic grasper and was able to get the omentum and other loops of small bowel out of the way. I identified the terminal ileum as well as the cecum with the cancer, which appeared to have extramural extension of the cancer. Once I identified a loop that was proximal enough to the ileocecal valve to be mobile enough to bring up through the abdominal wall, I grasped it with the grasper and left the grasper in place. I had premarked the ostomy site in the right mid abdomen just below the level of the umbilicus and through the rectus muscles. I removed a 50 cent piece size of skin after anesthetizing this area and dissected through subcutaneous fat, made a cruciate incision through the anterior rectus sheath, spread the muscles medially and laterally without dividing them, and then made a cruciate incision in the posterior rectus sheath and entered the peritoneal cavity with no problems. I could easily see my laparoscopic grasper on the loop of bowel that I had selected, and so I pulled this loop up through this wound, and then I removed the grasper and the port. Once the loop was secure, I closed the skin at the port sites with single 4-0 Monocryl subcuticular sutures. I then placed a bridge through the mesentery adjacent to the bowel after making a small window in the mesentery and then divided the small bowel loop transversely. I then used interrupted 3-0 Vicryl all around to secure the loop of bowel and to [place] it and then sewed the opening all the way around with running 4-0 Monocryl suture so it was in a [place] fashion and protruded from the skin for about 2 cm. The stoma looked great after we were all done, and the mucosa was well perfused and nice and pink. Her abdomen was cleaned and dried, and I applied a stoma appliance around the stoma and then sterile surgical dressings around the 5 mm port sites. The patient was awakened, extubated in the operating room, and transported to the recovery room in stable condition having tolerated the procedure without any apparent problems. HARDIK
[2017-09-12] MEDS: D5NS(*) 1000 ML BAG 1,000 ML IV PRN (16:01)
[2017-09-13 02:31] VITALS: BP 134/60
[2017-09-13] MEDS: MORPHINE 4 MG/ML SDV IV PRN (02:42)
[2017-09-13] MEDS: D5NS(*) 1000 ML BAG 1,000 ML IV PRN (05:48)
[2017-09-13 07:33] VITALS: BP 138/64
--- NOTE | 2017-09-13 08:02 | Hospitalist Progress Note ---
Subjective Progress Notes Subjective This patient is status post surgery for bowel obstruction. She had no acute events overnight. Patient Complains of: Cardiovascular: No: Chest Pain Respiratory: No: Shortness of Breath Physical Exam Vital Signs Date Time Temp Pulse Resp B/P (MAP) Pulse Ox O2 Delivery O2 Flow Rate FiO2 09/13/17 02:31 98.3 71 16 134/60 (84) 95 Nasal Cannula 1.0 Cardiovascular: Regular Rate and Rhythm Respiratory: Clear to Auscultation GI: Soft and Non-Tender Result Diagram: 09/11/1749 09/11/1749 Assessment and Plan Problems: (1) Small bowel obstruction Status: Acute Assessment & Plan: She did have surgery yesterday with no complications. Lovenox has been restarted. (2) Hypokalemia Status: Acute Assessment & Plan: Resolved with supplementation. (3) Cancer of cecum Status: Chronic Assessment & Plan: Terminal Cecal cancer with hepatic metastasis. She didn't tolerate chemotherapy. She has been in Hospice care previously. (4) Hypertension Status: Chronic Assessment & Plan: She is on chronic treatment with a clonidine patch, which is currently in place. She is also ordered to receive labetalol as needed. Central Venous Access Medical Necessity for Access: IV Access Exam Sepsis Risk: No Definite Risk Problem Qualifiers (1) Hypertension: Hypertension type: essential hypertension Qualified Codes: I10 - Essential ( primary) hypertension JORDI LESTER DO September 13, 2017 08:02
[2017-09-13] MEDS: PANTOPRAZOLE SOD 40 MG IV VIAL IVP SCH (08:51)
[2017-09-13] MEDS: ENOXAPARIN 40 MG/0.4ML SYR SC SCH (09:27)
--- NOTE | 2017-09-13 09:47 | General Surgery Progress Note ---
Subjective Progress Notes Subjective No complaints. Feeling better. Feels hungry. Physical Exam Vital Signs Date Time Temp Pulse Resp B/P (MAP) Pulse Ox O2 Delivery O2 Flow Rate FiO2 09/13/17 07:33 92 Room Air 09/13/17 07:33 98.4 72 16 138/64 (88) 09/13/17 02:31 1.0 General Appearance: Alert, Awake, No Acute Distress, Afebrile GI: Other (Soft, appropriate postop TTP, stoma is pink with gas and liquid stool in bag.) Extremities: Warm, Perfused Result Diagram: 09/11/17 0549 09/11/17 0549 Assessment and Plan Problems: (1) Small bowel obstruction Status: Acute Assessment & Plan: 09/10/17: SBO due to advanced cecal cancer. She is admitted to the hospitalist service. She has been started on conservative management with NG tube decompression and IV fluids. Our options are limited if she fails to resolve with conservative management and I suspect she WON'T respond to conservative management since it is likely the cancer that is causing the obstruction. The only reasonable option at this point, especially in the context of hospice, is a diverting loop ileostomy proximal to the obstruction. Other than this, comfort measures are the only other feasible alternative. Resection of the tumor is not recommended as this would a require increased risk of complications and suffering with risk of anastomotic leak due to malnutrition. Loop ileostomy will resolve the obstruction but will require stoma care until the cancer unfortunately claims her life. These options have been explained to the patient and her in detail and they would like to consider her options and discuss them with their son. I will speak with them this evening when I round again and see how they would like to proceed. 09/11/17: Continued SBO due to growing cecal cancer. Long discussion with patient, , and son (via Facetime) and they would like to proceed with diverting loop ileostomy as part of her palliative care regimen to relieve her obstruction and allow her to eat and relieve her abdominal symptoms due to the obstruction. I have, again, explained the procedure to them in great detail as well as alternatives and risks and their questions have been answered. They would like to proceed with diverting loop ileostomy. Will add this on for tomorrow morning. 09/12/17: Will proceed with diverting loop ileostomy this morning. Pt and her wish to proceed. 09/13/17: POD#1 s/p laparoscopic diverting loop ileostomy. Pt is doing very well. Tolerating clear diet. Will start regular diet and stop IV fluids and will start PO meds. Will as PT/OT to eval and treat as concerned about her ability to ascend/descend stairs when she goes home. Will ask therapeutic case manager [facility] to orchestrate home health RN to help with stoma care at home. Hopeful for d/c on Thursday depending on if things are arranged for home health care and PT/OT's assessment is that she's strong enough to go home. (2) Adenocarcinoma of cecum, stage 4b Status: Chronic Central Venous Access Medical Necessity for Access: IV Access Condition Stable. Time Spent: < 30 min Exam Sepsis Risk: No Definite Risk JORDI BARROW MD September 13, 2017 09:46
[2017-09-13 09:52] LABS: PLATELET COUNT, AUTOMATED 434 K/uL (150-450)
[2017-09-13 11:49] VITALS: BP 151/58
[2017-09-13] MEDS: IBUPROFEN 600 MG TAB PO PRN ×2 (11:54→20:34)
--- NOTE | 2017-09-13 11:58 | Medical Nutrition Therapy ---
Nutrition Anthropometrics Height (Inches): 60.00 Height (Calculated Centimeters: 152.155598 Weight (Pounds): 96 Weight (Calculated Kilograms): 43.715 BMI Calculated: 18.75 [place] Nutrition Score: Probably Inadequate [place] Nutrition Risk Score: 18 Dietary Referral Nutrition Risk Factors: Unplanned Loss >10lbs, Diff. Swallowing, Recent Nutrition Impact Nutrition Risk Comment: Physical Findings Physical Appearance: Underweight BMI<19 Skin Appearance Skin Appearance: Edema Edema Location Modifier: Both Edema Location: Lower Extremity Type of Edema: Degree of Edema: 2+ Gastrointestinal Symptoms GI Symtoms: Appetite Changes, Bloating, Change in Bowel Pattern Tube Present: NG Bowel Sounds: Recent Bowel Pattern: Stool Characteristics: Hard Nutrition/Food History Decreased Appetite Nutritional Diagnosis Nutritional Risk Acuity 1: GI Obstruction Nutritional Risk Acuity 2: Ileostomy Nutritional Risk Acuity 3: Weight Loss, Cancer Past Medical History: CAD, hypercholesterolemia, HTN, PUD, stage 4b adenocarcinoma of cecum, SBO Nutritional Acuity: 1-High Nutrition Diagnosis: Altered GI Function Nutrition Etiology: Physiological Causes Nutrition Problem/Etiology/Sym: Altered GI function related to physiological causes AEB two days NPO diet. Energy Requirement: 1331 ([place] 853 X AF 1.3 X 1.2 SF 1331) Adjusted Energy Requirement Re: 48 (1.1g/kg 45.715 ) Fluid Requirement: 1331 (1 ml/kcal) Diet Type: Diet as Tolerated KLARISSA/REG Nutrition Intervention: Cont diet as ordered, Encourage intake, Change diet Nutrition Monitoring & Eval Nutrition Goals: Eat 75-100% Meal RD Patient Assessment Time: [address] Assessment Type: RD Re-Assessment Patient Nutrition Acuity: 1-High Follow Up Date: September 15, 2017 Nutritional Comment: 09/10 Pt admitted for SBO. Pt is experencing abdominal pain, N/V and gas. Pt is on NPO diet, along with fluid and K+ IV. Pt has continue to decline since admission. Dr. evangelista states that SBO is related to her cancer and poor nutrition. Only safe opition at this time is ileostomy proximal to the obstruction. Notable labs are low Na 136, low K+ 3.2 and low BUN 4. Continue to monitor pt progress and medical desionons related to ileostomy with the possible need of nutrtion eduation. Follow up wuth pt 09/11. MT 09/11 Pt continues day two on NPO diet. Notable labs indicate low alb 2.1. Pt continues to experience N/V and abdominal pain. Dr. evangelista states that pt was on hospice due to pt not being able to tolerate chemo awhile back, and may need to go back on hospice again. Pt may benefit from nutriton support or comfort care. Pt is also scheduled for surgical ileostomy tomorrow per Dr. evangelista. (09/12). Continue to monitor pt progress and will follow up 09/12. MT 09/13 POD#1 after diverting loop ileostomy. Pt receiving clear liquids and tolerating. Recent change to KLARISSA. K+ 3.0, High WBC, Alb 2.1. Monitior tolerace to KLARISSA, follow labs, intake. etc. -SAUL EGAN September 13, 2017 11:58
[2017-09-13 18:42] VITALS: BP 130/56
[2017-09-13] MEDS ORDERED: KCL (*) 20 MEQ/100 ML PREMIX 100 ML IV ONE (20:30)
[2017-09-13] MEDS ORDERED: NS(*) 0.9% 500 ML BAG 500 ML ONE (21:10)
[2017-09-13 22:49] VITALS: BP 166/56
[2017-09-14 02:13] VITALS: BP 144/59
[2017-09-14] MEDS: IBUPROFEN 600 MG TAB PO PRN (04:48)
[2017-09-14 05:53] LABS: PLATELET COUNT, AUTOMATED 392 K/uL (150-450)
--- NOTE | 2017-09-14 07:50 | General Surgery Progress Note ---
Subjective Progress Notes Subjective No complaints. Physical Exam Vital Signs Date Time Temp Pulse Resp B/P (MAP) Pulse Ox O2 Delivery O2 Flow Rate FiO2 09/14/17 02:13 98.9 76 16 144/59 (87) 94 Room Air 09/13/17 02:31 1.0 General Appearance: Alert, Awake, No Acute Distress, Afebrile GI: Other (Soft, appropriate postop TTP, dressings C/D/I, stoma is pink and functional.) Extremities: Warm, Perfused Result Diagram: 09/14/17 0510 09/14/17 0510 Assessment and Plan Problems: (1) Small bowel obstruction Status: Acute Assessment & Plan: 09/10/17: SBO due to advanced cecal cancer. She is admitted to the hospitalist service. She has been started on conservative management with NG tube decompression and IV fluids. Our options are limited if she fails to resolve with conservative management and I suspect she WON'T respond to conservative management since it is likely the cancer that is causing the obstruction. The only reasonable option at this point, especially in the context of hospice, is a diverting loop ileostomy proximal to the obstruction. Other than this, comfort measures are the only other feasible alternative. Resection of the tumor is not recommended as this would a require increased risk of complications and suffering with risk of anastomotic leak due to malnutrition. Loop ileostomy will resolve the obstruction but will require stoma care until the cancer unfortunately claims her life. These options have been explained to the patient and her in detail and they would like to consider her options and discuss them with their son. I will speak with them this evening when I round again and see how they would like to proceed. 09/11/17: Continued SBO due to growing cecal cancer. Long discussion with patient, , and son (via Facetime) and they would like to proceed with diverting loop ileostomy as part of her palliative care regimen to relieve her obstruction and allow her to eat and relieve her abdominal symptoms due to the obstruction. I have, again, explained the procedure to them in great detail as well as alternatives and risks and their questions have been answered. They would like to proceed with diverting loop ileostomy. Will add this on for tomorrow morning. 09/12/17: Will proceed with diverting loop ileostomy this morning. Pt and her wish to proceed. 09/13/17: POD#1 s/p laparoscopic diverting loop ileostomy. Pt is doing very well. Tolerating clear diet. Will start regular diet and stop IV fluids and will start PO meds. Will as PT/OT to eval and treat as concerned about her ability to ascend/descend stairs when she goes home. Will ask case briefer in [facility] to orchestrate home health RN to help with stoma care at home. Hopeful for d/c on Thursday depending on if things are arranged for home health care and PT/OT's assessment is that she's strong enough to go home. 09/14/17: POD#2. Doing well. Tolerating regular diet. Will have PT/OT see today and make sure she's safe for d/c tomorrow and able to ascend/descend stairs. Will have [facility] case briefer set up home health nursing/hospice for stoma care. Home tomorrow if everything is set up for her at that time. (2) Adenocarcinoma of cecum, stage 4b Status: Chronic Central Venous Access Medical Necessity for Access: IV Access Condition Stable. Time Spent: < 30 min Exam Sepsis Risk: No Definite Risk JORDI BARROW MD September 14, 2017 07:50
[2017-09-14 08:00] VITALS: BP 146/57
[2017-09-14] MEDS: ENOXAPARIN 40 MG/0.4ML SYR SC SCH (08:42)
[2017-09-14] MEDS: PANTOPRAZOLE SOD 40 MG TABEC PO SCH (08:42)
--- NOTE | 2017-09-14 10:42 | Hospitalist Progress Note ---
Subjective Progress Notes Subjective She has no concerns this morning. She states she has been eating without difficulty and has decreased pain. Patient Complains of: Cardiovascular: No: Chest Pain Respiratory: No: Shortness of Breath Physical Exam Vital Signs Date Time Temp Pulse Resp B/P (MAP) Pulse Ox O2 Delivery O2 Flow Rate FiO2 09/14/17 08:00 98.5 71 16 146/57 (86) 95 Room Air 09/13/17 02:31 1.0 Intake and Output 09/15/17 01:00 Intake Total 340 ml Output Total 225 ml Balance 115 ml Intake Oral 340 ml Output Stool Total 225 ml # Voids 2 General Appearance: Alert, Awake, No Acute Distress, Afebrile Neuro: No Gross deficits Cardiovascular: Regular Rate and Rhythm Respiratory: No Respiratory Distress, Clear to Auscultation Psych: Alert & Oriented X3, Appropriate Mood & Affect Result Diagram: 09/14/17 0510 09/14/17 0510 Assessment and Plan Problems: (1) Small bowel obstruction Status: Acute Assessment & Plan: She did have surgery yesterday with no complications. Lovenox has been restarted. (2) Hypokalemia Status: Acute Assessment & Plan: Resolved with supplementation. (3) Cancer of cecum Status: Chronic Assessment & Plan: Terminal Cecal cancer with hepatic metastasis. She didn't tolerate chemotherapy. She has been in Hospice care previously. (4) Hypertension Status: Chronic Assessment & Plan: She is on chronic treatment with a clonidine patch, which is currently in place. Central Venous Access Medical Necessity for Access: IV Access Exam Sepsis Risk: No Definite Risk Problem Qualifiers (1) Hypertension: Hypertension type: essential hypertension Qualified Codes: I10 - Essential ( primary) hypertension ANGELA MADERA [employer]SEM[employer]ER September 14, 2017 10:42
[2017-09-14 11:18] VITALS: BP 155/64
[2017-09-14 19:45] VITALS: BP 156/63
[2017-09-14 23:15] VITALS: BP 163/96
[2017-09-15 03:19] VITALS: BP 150/67
[2017-09-15 06:05] LABS: PLATELET COUNT, AUTOMATED 363 K/uL (150-450)
[2017-09-15 07:20] VITALS: BP 164/66
--- NOTE | 2017-09-15 07:52 | General Surgery Progress Note ---
Subjective Progress Notes Subjective C/O pain around stoma. O/W, no complaints. Physical Exam Vital Signs Date Time Temp Pulse Resp B/P (MAP) Pulse Ox O2 Delivery O2 Flow Rate FiO2 09/15/17 07:26 94 Room Air 09/15/17 07:20 99.1 78 12 164/66 (98) 09/13/17 02:31 1.0 General Appearance: Alert, Awake, No Acute Distress, Afebrile GI: Other (Soft, TTP around stoma and across lower abdomen, there is also erythema across lower abdomen) Extremities: Warm, Perfused Result Diagram: 09/15/1752109/15/17521 Assessment and Plan Problems: (1) Small bowel obstruction Status: Acute Assessment & Plan: 09/10/17: SBO due to advanced cecal cancer. She is admitted to the hospitalist service. She has been started on conservative management with NG tube decompression and IV fluids. Our options are limited if she fails to resolve with conservative management and I suspect she WON'T respond to conservative management since it is likely the cancer that is causing the obstruction. The only reasonable option at this point, especially in the context of hospice, is a diverting loop ileostomy proximal to the obstruction. Other than this, comfort measures are the only other feasible alternative. Resection of the tumor is not recommended as this would a require increased risk of complications and suffering with risk of anastomotic leak due to malnutrition. Loop ileostomy will resolve the obstruction but will require stoma care until the cancer unfortunately claims her life. These options have been explained to the patient and her in detail and they would like to consider her options and discuss them with their son. I will speak with them this evening when I round again and see how they would like to proceed. 09/11/17: Continued SBO due to growing cecal cancer. Long discussion with patient, , and son (via Facetime) and they would like to proceed with diverting loop ileostomy as part of her palliative care regimen to relieve her obstruction and allow her to eat and relieve her abdominal symptoms due to the obstruction. I have, again, explained the procedure to them in great detail as well as alternatives and risks and their questions have been answered. They would like to proceed with diverting loop ileostomy. Will add this on for tomorrow morning. 09/12/17: Will proceed with diverting loop ileostomy this morning. Pt and her wish to proceed. 09/13/17: POD#1 s/p laparoscopic diverting loop ileostomy. Pt is doing very well. Tolerating clear diet. Will start regular diet and stop IV fluids and will start PO meds. Will as PT/OT to eval and treat as concerned about her ability to ascend/descend stairs when she goes home. Will ask case monitor in [facility] to orchestrate home health RN to help with stoma care at home. Hopeful for d/c on Thursday depending on if things are arranged for home health care and PT/OT's assessment is that she's strong enough to go home. 09/14/17: POD#2. Doing well. Tolerating regular diet. Will have PT/OT see today and make sure she's safe for d/c tomorrow and able to ascend/descend stairs. Will have [facility] case monitor set up home health nursing/hospice for stoma care. Home tomorrow if everything is set up for her at that time. 09/15/17: POD#3. She looks to be developing cellulitis across lower abdomen. Will start IV zosyn and follow this. Stoma is functional. Will continue to work on d/c planning but now will need to wait for cellulitis to resolve. (2) Abdominal wall cellulitis Status: Acute (3) Adenocarcinoma of cecum, stage 4b Status: Chronic Central Venous Access Medical Necessity for Access: IV Access Condition Stable. Time Spent: < 30 min Exam Sepsis Risk: No Definite Risk JORDI BARROW MD September 15, 2017 07:52
[2017-09-15] MEDS: PIPERACILLIN/TAZO*3.375GM VIAL 3.375 GM in NS(*) 0.9% 100 ML ADDVANT BAG 100 ML IVPB SCH ×3 (08:24→20:19)
[2017-09-15] MEDS: PANTOPRAZOLE SOD 40 MG TABEC PO SCH (08:24)
[2017-09-15] MEDS: ENOXAPARIN 40 MG/0.4ML SYR SC SCH (08:24)
--- NOTE | 2017-09-15 09:56 | Medical Nutrition Therapy ---
Nutrition Anthropometrics Height (Inches): 60.00 Height (Calculated Centimeters: 152.473971 Weight (Pounds): 96 Weight (Calculated Kilograms): 43.715 BMI Calculated: 18.75 Jaiden Nutrition Score: Probably Inadequate Jaiden Nutrition Risk Score: 18 Dietary Referral Nutrition Risk Factors: Unplanned Loss >10lbs, Diff. Swallowing, Recent Nutrition Impact Nutrition Risk Comment: Physical Findings Physical Appearance: Underweight BMI<19 Skin Appearance Skin Appearance: Edema Edema Location Modifier: Both Edema Location: Foot Type of Edema: Degree of Edema: 2+ Gastrointestinal Symptoms GI Symtoms: Appetite Changes, Change in Bowel Pattern Tube Present: NG Bowel Sounds: Recent Bowel Pattern: Stool Characteristics: Hard Nutritional Diagnosis Nutritional Risk Acuity 1: GI Obstruction Nutritional Risk Acuity 2: Ileostomy Nutritional Risk Acuity 3: Weight Loss, Cancer Past Medical History: CAD, hypercholesterolemia, HTN, PUD, stage 4b adenocarcinoma of cecum, SBO, cellulitis across lower abdomen Nutritional Acuity: 1-High Nutrition Diagnosis: Altered GI Function Nutrition Etiology: Physiological Causes Nutrition Problem/Etiology/Sym: Altered GI function related to physiological causes AEB two days NPO diet. Energy Requirement: 1331 ([place] 853 X AF 1.3 X 1.2 SF 1331) Adjusted Energy Requirement Re: 48 (1.1g/kg 45.715 ) Fluid Requirement: 1331 (1 ml/kcal) Diet Type: Diet as Tolerated KLARISSA/REG Nutrition Intervention: Cont diet as ordered, Encourage intake, Change diet Nutrition Monitoring & Eval Nutrition Goals: Eat 75-100% Meal RD Patient Assessment Time: [address] Assessment Type: RD Re-Assessment Patient Nutrition Acuity: 1-High Follow Up Date: September 18, 2017 Nutritional Comment: 09/10 Pt admitted for SBO. Pt is experencing abdominal pain, N/V and gas. Pt is on NPO diet, along with fluid and K+ IV. Pt has continue to decline since admission. Dr. evangelista states that SBO is related to her cancer and poor nutrition. Only safe opition at this time is ileostomy proximal to the obstruction. Notable labs are low Na 136, low K+ 3.2 and low BUN 4. Continue to monitor pt progress and medical desionons related to ileostomy with the possible need of nutrtion eduation. Follow up wuth pt 09/11. MT 09/11 Pt continues day two on NPO diet. Notable labs indicate low alb 2.1. Pt continues to experience N/V and abdominal pain. note states that pt was on hospice due to pt not being able to tolerate chemo awhile back, and may need to go back on hospice again. Pt may benefit from nutriton support or comfort care. Pt is also scheduled for surgical ileostomy tomorrow per note. (09/12). Continue to monitor pt progress and will follow up 09/12. MT 09/13 POD#1 after diverting loop ileostomy. Pt receiving clear liquids and tolerating. Recent change to KLARISSA. K+ 3.0, High WBC, Alb 2.1. Monitior tolerace to KLARISSA, follow labs, intake. etc. -DRT 09/15 Pt tolerating KLARISSA/REG diet with oral intake 50%. Pt states she now can eat without difficulty and her pain has decreased. Notable labs are low Ca/mg, low K+ 3.4, alb 2 and BUN 6. Pt is doing well and was ready to d/c however, pt developed cellulitis across her lower abdomen. Once that is cleared pt d/c process will begin again. Continue to monitor pt progress and lab values. JEMIMA HUBERBENY September 15, 2017 09:55
--- NOTE | 2017-09-15 10:40 | Hospitalist Progress Note ---
Subjective Progress Notes Subjective She has no concerns today. She states she has minimal pain. Patient Complains of: Cardiovascular: No: Chest Pain Respiratory: No: Shortness of Breath Physical Exam Vital Signs Date Time Temp Pulse Resp B/P (MAP) Pulse Ox O2 Delivery O2 Flow Rate FiO2 09/15/17 08:37 94 09/15/17 07:26 Room Air 09/15/17 07:20 99.1 78 12 164/66 (98) 09/13/17 02:31 1.0 Intake and Output 09/16/17 07:00 Intake Total 120 ml Balance 120 ml Intake Oral 120 ml General Appearance: Alert, Awake, No Acute Distress, Afebrile Neuro: No Gross deficits Cardiovascular: Regular Rate and Rhythm Respiratory: No Respiratory Distress, Clear to Auscultation GI: Other (Erythema noted to lower abdomen) Integumentary: Other Psych: Alert & Oriented X3, Appropriate Mood & Affect Result Diagram: 09/15/1752109/15/17521 Assessment and Plan Problems: (1) Small bowel obstruction Status: Acute Assessment & Plan: She did have surgery 09/12 with no complications. Lovenox has been restarted. (2) Abdominal wall cellulitis Status: Acute Assessment & Plan: Followed by Dr. Groves. She has been started on Zosyn. (3) Hypokalemia Status: Acute Assessment & Plan: Resolved with supplementation. (4) Cancer of cecum Status: Chronic Assessment & Plan: Terminal Cecal cancer with hepatic metastasis. She didn't tolerate chemotherapy. She has been in Hospice care previously. (5) Hypertension Status: Chronic Assessment & Plan: She is on chronic treatment with a clonidine patch, which is currently in place. 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 Central Venous Access Medical Necessity for Access: IV Access Exam Sepsis Risk: No Definite Risk Problem Qualifiers (1) Hypertension: Hypertension type: essential hypertension Qualified Codes: I10 - Essential ( primary) hypertension ANGELA MADERAP September 15, 2017 10:40
[2017-09-15 11:31] VITALS: BP 143/65
[2017-09-15 15:12] VITALS: BP 145/58
[2017-09-15 18:59] VITALS: BP 146/66
[2017-09-15 23:27] VITALS: BP 145/62
[2017-09-16] MEDS: PIPERACILLIN/TAZO*3.375GM VIAL 3.375 GM in NS(*) 0.9% 100 ML ADDVANT BAG 100 ML IVPB SCH (01:58)
[2017-09-16 02:53] VITALS: BP 132/61
--- NOTE | 2017-09-16 06:51 | General Surgery Progress Note ---
Subjective Progress Notes Subjective No complaints other than occasional pain around stoma. Physical Exam Vital Signs Date Time Temp Pulse Resp B/P (MAP) Pulse Ox O2 Delivery O2 Flow Rate FiO2 09/16/17 04:42 91 09/16/17 02:53 99.6 93 15 132/61 (84) Room Air 09/13/17 02:31 1.0 General Appearance: Alert, Awake, No Acute Distress, Afebrile GI: Soft and Non-Tender (Erythema is resolving, stoma is pink with gas and stool in bag. Bridge removed.) Extremities: Warm, Perfused Result Diagram: 09/15/1752109/15/17521 Assessment and Plan Problems: (1) Small bowel obstruction Status: Acute Assessment & Plan: 09/10/17: SBO due to advanced cecal cancer. She is admitted to the hospitalist service. She has been started on conservative management with NG tube decompression and IV fluids. Our options are limited if she fails to resolve with conservative management and I suspect she WON'T respond to conservative management since it is likely the cancer that is causing the obstruction. The only reasonable option at this point, especially in the context of hospice, is a diverting loop ileostomy proximal to the obstruction. Other than this, comfort measures are the only other feasible alternative. Resection of the tumor is not recommended as this would a require increased risk of complications and suffering with risk of anastomotic leak due to malnutrition. Loop ileostomy will resolve the obstruction but will require stoma care until the cancer unfortunately claims her life. These options have been explained to the patient and her in detail and they would like to consider her options and discuss them with their son. I will speak with them this evening when I round again and see how they would like to proceed. 09/11/17: Continued SBO due to growing cecal cancer. Long discussion with patient, , and son (via Facetime) and they would like to proceed with diverting loop ileostomy as part of her palliative care regimen to relieve her obstruction and allow her to eat and relieve her abdominal symptoms due to the obstruction. I have, again, explained the procedure to them in great detail as well as alternatives and risks and their questions have been answered. They would like to proceed with diverting loop ileostomy. Will add this on for tomorrow morning. 09/12/17: Will proceed with diverting loop ileostomy this morning. Pt and her wish to proceed. 09/13/17: POD#1 s/p laparoscopic diverting loop ileostomy. Pt is doing very well. Tolerating clear diet. Will start regular diet and stop IV fluids and will start PO meds. Will as PT/OT to eval and treat as concerned about her ability to ascend/descend stairs when she goes home. Will ask case preparer and liner [facility] to orchestrate home health RN to help with stoma care at home. Hopeful for d/c on Thursday depending on if things are arranged for home health care and PT/OT's assessment is that she's strong enough to go home. 09/14/17: POD#2. Doing well. Tolerating regular diet. Will have PT/OT see today and make sure she's safe for d/c tomorrow and able to ascend/descend stairs. Will have [facility] case preparer and liner set up home health nursing/hospice for stoma care. Home tomorrow if everything is set up for her at that time. 09/15/17: POD#3. She looks to be developing cellulitis across lower abdomen. Will start IV zosyn and follow this. Stoma is functional. Will continue to work on d/c planning but now will need to wait for cellulitis to resolve. 09/16/17: POD#4. Doing well. Will change to po abx and pt may d/c to home today with home health nursing if ready from medical standpoint. (2) Abdominal wall cellulitis Status: Acute (3) Adenocarcinoma of cecum, stage 4b Status: Chronic Central Venous Access Medical Necessity for Access: IV Access Condition Stable. Time Spent: < 30 min Exam Sepsis Risk: No Definite Risk JORDI BARROW MD September 16, 2017 06:51
[2017-09-16 07:03] VITALS: BP 151/61
[2017-09-16 07:22] LABS: PLATELET COUNT, AUTOMATED 391 K/uL (150-450)
[2017-09-16] MEDS ORDERED: AMOX/CLAV 500 MG TAB PO SCH (08:00)
[2017-09-16] MEDS ORDERED: KCL (*) 20 MEQ/100 ML PREMIX 100 ML IV ONE (08:15)
[2017-09-16] MEDS: PANTOPRAZOLE SOD 40 MG TABEC PO SCH (08:33)
[2017-09-16] MEDS: ENOXAPARIN 40 MG/0.4ML SYR SC SCH (08:33)
[2017-09-16] MEDS ORDERED: amLODIPine BESYL(*) 5 MG TAB PO SCH (09:00)
[2017-09-16] MEDS ORDERED: POTA-53 PO (10:38)
--- NOTE | 2017-09-16 10:45 | Hospitalist Depart ---
Discharge Summary Reason for Hosp/Final Diag: (1) Small bowel obstruction Status: Acute Hospital Course & Plan: She did have surgery 09/12 with no complications. (2) Abdominal wall cellulitis Status: Acute Hospital Course & Plan: Followed by Dr. Groves. She was started on Zosyn 09/15 , but has been switched to Augmentin today. (3) Hypokalemia Status: Acute Hospital Course & Plan: Resolved with supplementation. (4) Cancer of cecum Status: Chronic Hospital Course & Plan: Terminal Cecal cancer with hepatic metastasis. She didn't tolerate chemotherapy. She has been in Hospice care previously. (5) Hypertension Status: Chronic Hospital Course & Plan: She was treated with a clonidine patch during admission. She will resume her Amlodipine, but she will increase to 10 mg daily. 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 Departure Latest Vital Signs Vital Signs 09/13/17 09/16/17 09/16/17 02:31 07:03 07:30 Temp 98.9 Pulse 74 Resp 20 B/P (MAP) 151/61 (91) Pulse Ox 95 O2 Delivery Room Air O2 Flow Rate 1.0 Weight (Pounds): 96 Weight (Ounces): 6.0 Result Diagram: 09/16/17 0710 09/16/17 0710 Condition: Improved Discharge: Home, Home Health PT/OT Follow Up For: PT For Strengthening, OT For ADL's Home Health RN Follow Up For: Other Discharge Instructions Home Meds Active Scripts Oxycodone Hcl (OXYCODONE HCL) 5 Mg Tablet, 5 MG PO Q4-6H Y for PAIN, #20 TAB Prov:BIANCA REYES [employer] 08/28/17 Reported Medications Dronabinol (DRONABINOL) 2.5 Mg Capsule, 2.5 MG PO BID 09/10/17 Amlodipine Besylate (AMLODIPINE BESYLATE) 5 Mg Tablet, 1 TAB PO QDAY, TAB 08/28/17 Bisacodyl (Women's Gentle Laxative) 5 Mg Tablet.dr, PO Q8H Y for CONSTIPATION 08/28/17 Tramadol Hcl (TRAMADOL HCL) 50 Mg Tablet, 50-150 MG PO Q4-6H Y for PAIN, TAB 08/28/17 Discontinued Reported Medications Lactulose (LACTULOSE) 10 Gm/15 Ml Solution, 20 ML PO Q8H Y for CONSTIPATION 08/28/17 Megestrol Acetate (MEGACE ES) 625 Mg/5 Ml Oral.susp, 160 MG PO DAILY 08/28/17 Diet: Regular Activity: As Tolerated Special Instructions: Follow up early next week with Jackelin Barber for recheck of BMP. Copies to: JENNIFER BENTLEY Venous Thromboembolism Antithrombotics Is Pt On Any Antithrombotics?: No [id number] Certification Face to Face Home Health Certification Institutional Provider conducted the [id number] encounter. Electronic Undersigning Physician Certifies Home Health. I certify that the patient has been under my care and that I had a [id number] encounter that meets the physician [id number] encounter requirements with this patient. This patient is home-bound due to safety issues and continues to require assistance with ADL's. I certify that based on my findings, that Nursing, Aides and the following Home Health services are medically necessary. Medical Necessity: Nursing, Rehab Date Face to Face Conducted: September 16, 2017 Problem Qualifiers (1) Hypertension: Hypertension type: essential hypertension Qualified Codes: I10 - Essential ( primary) hypertension ANGELA MADERA [employer] September 16, 2017 10:44
[2017-09-16] MEDS ORDERED: AMOX-556 PO (10:53)
[2017-09-16] MEDS ORDERED: HEPARIN FLSH (PORT) 500 UN/5ML ONE (11:02)
[2017-09-17] MEDS ORDERED: cloNIDine HCL 0.2 MG TDSY TD SCH (21:00)
== END 2017-09-16 11:40 | disposition home health service (06) | DRG 330 ==
LOC: ER 14:10 → MED 18:43
PROVIDERS: ADMIT Specialist; ATTEND Specialist
PROC: 0D1B4Z4 Bypass Ileum to Cutaneous, Percutaneous Endoscopic Approach (ICD-10-PCS; principal; 2017-09-15)
DX: C18.0 Malignant neoplasm of cecum (principal); L03.311 Cellulitis of abdominal wall; C78.7 Secondary malignant neoplasm of liver and intrahepatic bile duct; Z68.1 Body mass index [BMI] 19.9 or less, adult; E46 Unspecified protein-calorie malnutrition; E87.6 Hypokalemia; E78.5 Hyperlipidemia, unspecified; K27.7 Chronic peptic ulcer, site unspecified, without hemorrhage or perforation; I10 Essential (primary) hypertension; Z92.21 Personal history of antineoplastic chemotherapy; Z88.8 Allergy status to other drugs, medicaments and biological substances; Z87.891 Personal history of nicotine dependence
CPT/HCPCS: 71045; 74177; 81001; 82040; 82247; 82310; 82374; 82435; 82565; 82947; 83690; 83735; 84075; 84132; 84155; 84295; 84450; 84460; 84520; 85025; 86850; 86900; 86901; 97161; 97165; 99284; A4406; C9113; J1100; J1642; J1650; J2001; J2250; J2270; J2405; J2543; J2704; J2795; J3010; J3480; J3490; J7030; J7040; J7042; J7050; Q9967

== ENCOUNTER 2017-09-21 15:33 | Observation (INO) | payer MEDICARE, OTHER ==
[2017-09-10 08:53] VITALS: Wt 41.3 kg
[~2017-09-21 15:33] MED LIST changes: +AMOX-556 PO; +POTA-53 PO
--- NOTE | 2017-09-21 15:43 | ER Report ---
History and Physical Time Seen By MD: 15:41 HPI/ROS CHIEF COMPLAINT: New ileostomy, decreased intake and output. HISTORY OF PRESENT ILLNESS: This is a 76-year-old female who presents to the emergency department with her for decreased intake and decreased ileostomy output. Patient was admitted to the hospital on 516 for a small bowel obstruction, patient does have a known history of cecum cancer, diagnosed 2 years ago to try chemotherapy however she did not like this stopped chemotherapy. She also has metastases to the liver. Patient had an ileostomy placed on 09/12, according to the patient's the surgery went well. Patient has been feeling well at home however over the last several days to week she's had decreased oral intake and decreased ileostomy output, states that she is feeling weak and fatigued. He decided to come in for further evaluation. Patient arrives alert and oriented. Denies chest pain or shortness of breath. Does have intermittent nausea. Denies headaches no visual changes. No dysuria. does state that she did have a low-grade fever at home. She is afebrile in the emergency department. REVIEW OF SYSTEMS: Constitutional: As above. Eyes: No discharge. ENT: No sore throat. Cardiovascular: No chest pain, no palpitations. Respiratory: No cough, no shortness of breath. Gastrointestinal: As above. Genitourinary: No hematuria. Musculoskeletal: No back pain. Skin: No rashes. Neurological: No headache. Allergies: Coded Allergies: diphenhydramine (Verified Adverse Reaction, Intermediate, RASH, 09/21/17) Home Meds Active Scripts Amoxicillin/Potassium Clav (AUGMENTIN 500-125 TABLET) 1 Each Tablet, 1 TAB PO Q12H for 7 Days, #14 TAB Prov:ANGELA MADERA [facility] 09/16/17 Potassium Chloride (POTASSIUM CHLORIDE) 10 Meq Tab.er.prt, 10 MEQ PO TID, #90 TAB Prov:ANGELA MADERA [facility] 09/16/17 Oxycodone Hcl (OXYCODONE HCL) 5 Mg Tablet, 5 MG PO Q4-6H Y for PAIN, #20 TAB Prov:BIANCA REYES [facility] 08/28/17 Reported Medications Dronabinol (DRONABINOL) 2.5 Mg Capsule, 2.5 MG PO BID 09/10/17 Amlodipine Besylate (AMLODIPINE BESYLATE) 5 Mg Tablet, 2 TAB PO QDAY, TAB 08/28/17 Tramadol Hcl (TRAMADOL HCL) 50 Mg Tablet, 50-150 MG PO Q4-6H Y for PAIN, TAB 08/28/17 Discontinued Reported Medications Bisacodyl (Women's Gentle Laxative) 5 Mg Tablet.dr, PO Q8H Y for CONSTIPATION 08/28/17 Past Medical/Surgical History Patient has a past medical and surgical history of hypertension, hypercholesterolemia, lower J GI bleed, anxiety, cecum cancer, ileostomy, bowel obstruction, tubal ligation. Reviewed Nurses Notes: Yes Hx Smoking: Yes Smoking Status: Former Smoker Exposure to Second Hand Smoke?: Yes Hx Substance Use Disorder: No Hx Alcohol Use: No Constitutional Vital Sign - Last 24 Hours 09/21/17 09/21/17 09/21/17 09/21/17 15:36 15:36 16:00 16:03 Temp 98.8 Pulse 142 108 Resp 20 15 B/P (MAP) 136/63 136/63 (87) 132/62 (85) Pulse Ox 92 91 O2 Delivery Room Air 09/21/17 09/21/17 09/21/17 09/21/17 17:00 17:03 17:05 17:08 Pulse 149 112 Resp 8 16 B/P (MAP) 134/64 (87) Pulse Ox 88 89 O2 Flow Rate 2.0 09/21/17 09/21/17 09/21/17 09/21/17 17:30 17:38 18:00 18:08 Pulse 107 104 Resp 20 10 B/P (MAP) 122/68 (86) 120/71 (87) Pulse Ox 99 100 Intake and Output 09/21/17 09/21/17 09/22/17 15:00 23:00 07:00 Intake Total 500 ml Balance 500 ml Physical Exam General Appearance: The patient is alert, has no immediate need for airway protection and no signs of toxicity, appears tired. Eyes: Pupils equal and round no pallor or injection. ENT, Mouth: Mucous membranes are dry. Respiratory: There are no retractions, lungs are clear to auscultation. Cardiovascular: Regular rate and rhythm, no murmurs, clicks or rubs. Gastrointestinal: Abdomen is soft and non tender, no masses, bowel sounds normal. Ileostomy, green discharge from the ileostomy some liquid, stoma is pink. Neurological: Alert and oriented 4. Moving all extremities. Following all commands. No focal neuro deficits. Skin: Warm and dry, no rashes. Musculoskeletal: Neck is supple non tender. Extremities are nontender, nonswollen and have full range of motion. DIFFERENTIAL DIAGNOSIS: After history and physical exam differential diagnosis was considered for postop complications, pneumonia, bowel obstruction, pulmonary embolus and GI bleed. Medical Decision Making Data Points Result Diagram: 09/21/17 1548 09/21/17 1548 Laboratory Hematology Test 09/21/17 15:48 Red Blood Count 3.28 M/uL (4.17-5.56) Mean Corpuscular Volume 76.3 fL (80.0-96.0) Mean Corpuscular Hemoglobin 25.4 pg (26.0-33.0) Mean Corpuscular Hemoglobin Concent 33.3 g/dL (32.0-36.0) Red Cell Distribution Width 23.6 % (11.5-14.5) Mean Platelet Volume 7.8 fL (7.2-11.1) Neutrophils (%) (Auto) % (39.4-72.5) Lymphocytes (%) (Auto) % (17.6-49.6) Monocytes (%) (Auto) % (4.1-12.4) Eosinophils (%) (Auto) % (0.4-6.7) Basophils (%) (Auto) % (0.3-1.4) Nucleated RBC Relative Count (auto) /100WBC Neutrophils # (Auto) K/uL (2.0-7.4) Lymphocytes # (Auto) K/uL (1.3-3.6) Monocytes # (Auto) K/uL (0.3-1.0) Eosinophils # (Auto) K/uL (0.0-0.5) Basophils # (Auto) K/uL (0.0-0.1) Nucleated RBC Absolute Count (auto) K/uL Neutrophils % (Manual) 75 % (39.4-72.5) Band Neutrophils % % Lymphocytes % (Manual) 18 % (17.6-49.6) Monocytes % (Manual) 5 % (4.1-12.4) Eosinophils % (Manual) 2 % (0.4-6.7) Basophils % (Manual) 0 % (0.3-1.4) Anisocytosis 2+ Sodium Level 132 mmol/L (137-145) Potassium Level 3.4 mmol/L (3.5-5.0) Chloride Level 106 mmol/L (98-107) Carbon Dioxide Level 17 mmol/L (22-31) Blood Urea Nitrogen 4 mg/dl (7-18) Creatinine 0.50 mg/dl (0.52-1.04) Glomerular Filtration Rate Calc > 60.0 Random Glucose 60 mg/dl (75-110) Calcium Level 7.1 mg/dl (8.4-10.2) Magnesium Level 1.5 mg/dl (1.7-2.2) Total Bilirubin 1.1 mg/dl (0.2-1.3) Aspartate Amino Transf (AST/SGOT) 67 U/L (0-35) Alanine Aminotransferase (ALT/SGPT) 29 U/L (0-56) Alkaline Phosphatase 487 U/L (0-126) Total Protein 5.9 gm/dl (6.3-8.2) Albumin 2.2 g/dl (3.5-5.0) Chemistry Test 09/21/17 15:48 White Blood Count 13.1 k/uL (4.5-11.0) Red Blood Count 3.28 M/uL (4.17-5.56) Hemoglobin 8.3 g/dL (12.0-16.0) Hematocrit 25.0 % (34.0-47.0) Mean Corpuscular Volume 76.3 fL (80.0-96.0) Mean Corpuscular Hemoglobin 25.4 pg (26.0-33.0) Mean Corpuscular Hemoglobin Concent 33.3 g/dL (32.0-36.0) Red Cell Distribution Width 23.6 % (11.5-14.5) Platelet Count 436 K/uL (150-450) Mean Platelet Volume 7.8 fL (7.2-11.1) Neutrophils (%) (Auto) % (39.4-72.5) Lymphocytes (%) (Auto) % (17.6-49.6) Monocytes (%) (Auto) % (4.1-12.4) Eosinophils (%) (Auto) % (0.4-6.7) Basophils (%) (Auto) % (0.3-1.4) Nucleated RBC Relative Count (auto) /100WBC Neutrophils # (Auto) K/uL (2.0-7.4) Lymphocytes # (Auto) K/uL (1.3-3.6) Monocytes # (Auto) K/uL (0.3-1.0) Eosinophils # (Auto) K/uL (0.0-0.5) Basophils # (Auto) K/uL (0.0-0.1) Nucleated RBC Absolute Count (auto) K/uL Neutrophils % (Manual) 75 % (39.4-72.5) Band Neutrophils % % Lymphocytes % (Manual) 18 % (17.6-49.6) Monocytes % (Manual) 5 % (4.1-12.4) Eosinophils % (Manual) 2 % (0.4-6.7) Basophils % (Manual) 0 % (0.3-1.4) Anisocytosis 2+ Glomerular Filtration Rate Calc > 60.0 Calcium Level 7.1 mg/dl (8.4-10.2) Magnesium Level 1.5 mg/dl (1.7-2.2) Total Bilirubin 1.1 mg/dl (0.2-1.3) Aspartate Amino Transf (AST/SGOT) 67 U/L (0-35) Alanine Aminotransferase (ALT/SGPT) 29 U/L (0-56) Alkaline Phosphatase 487 U/L (0-126) Total Protein 5.9 gm/dl (6.3-8.2) Albumin 2.2 g/dl (3.5-5.0) EKG/Imaging EKG Interpretation 12 lead EKG: Time of EKG 1553. Rhythm: Sinus tachycardia with PACs. Rate 117 bpm. [place]: normal QRS: normal ST segments: Flipped T waves in V3 and V4 V5 and V6. No ST depression or elevation identified. No significant difference from the 08/28/2017 EKG other than rate and PACs. Imaging Location: [facility] [place] Patient: Cassia Nathan : 1940 Visit/Account:[id number] Date of Sevice: 09/21/2017 Abdominal series with single view of the chest: 09/21/2017 4:04 PM HISTORY: Decreased output from the new ileostomy. COMPARISON: Chest x-ray on 09/09/2017. CT scan pelvis on 09/09/2017. FINDINGS: Some stool seen within the colon. Bowel gas pattern is nonobstructed and nondilated. Abdominal soft tissues are grossly normal without suspicious lucencies or abnormal calcifications. Ostomy seen in the right lower quadrant. No acute bony abnormality. Cardiomediastinal silhouette and pulmonary vessels within normal limits. Right Port-A-Cath is in place the tip in SVC unchanged. Removal of previous NG tube. Lungs show no consolidation. There is minimal blunting left costophrenic angle and minimal in the right costophrenic angle. No indication of pneumothorax. Stable nodule seen in the right lung. No new nodules are identified. No acute bony abnormality. IMPRESSION: 1. Unremarkable exam of the abdomen. 2. No acute pulmonary disease. Stable right lung nodules. Report Dictated By: Ignacio Nicholson at 09/21/2017 5:22 PM Report E-Signed By: Ignacio Nicholson at 09/21/2017 5:26 PM [id number] ED Course/Re-evaluation Clinical Indication for ER IV: Hydration, IV Access ED Course The patient was admitted to room. History and physical were obtained. Differential diagnoses were considered. The patient's port was accessed. A CBC, CMP, magnesium were obtained. Slight elevation in white count at 13.1, hemoglobin 8.3 hematocrit 25. Potassium 3.4, sodium 132, magnesium 1.5. A three- view abdomen series was negative for any acute process. I did review the laboratory studies with the patient's, I did tell her that her hemoglobin and hematocrit have dropped, the patient and I discussed at length the options of being admitted to the hospital versus going home. Patient states she had rather go home. I did give the patient 400 mg by mouth magnesium. I did tell the patient that I like to talk to the hospitalist about potential options including staying in the hospital versus going home and following up with the primary care provider. It is because Dr. Prerna Gamino regarding the patient's case and she said that either way the patient could go home or we could admit the patient and give her a dose of IV magnesium as well as a couple of units of blood. I did go back and speak with patient and her ultimately they elected to go ahead with the admission, and hopefully discharge home tomorrow. The patient was tearful but felt that she would benefit from an overnight inpatient stay. The patient had no other questions or concerns at this time and was admitted to the medical floor. 09/21/2017 5:48:46 pm I did speak with Dr. Prerna Gamino the hospitalist on-call, she has accepted the patient into her care. Decision to Disposition Date: September 21, 2017 Decision to Disposition Time: 17:58 Depart Departure Latest Vital Signs Vital Signs Date Time Temp Pulse Resp B/P (MAP) Pulse Ox O2 Delivery O2 Flow Rate FiO2 09/21/17 18:08 104 10 100 09/21/17 18:00 120/71 (87) 09/21/17 17:05 2.0 09/21/17 15:36 98.8 Room Air Impression: Primary Impression: Hypomagnesemia Additional Impression: Cancer of cecum Condition: Improved Disposition: Admitted from ER Referrals: JENNIFER BENTLEY (PCP) Problem Qualifiers JULIÁN MIGUEL-BC September 21, 2017 15:43
[2017-09-21] MEDS ORDERED: NS(*) 0.9% 500 ML BAG 500 ML IV ONE (16:05)
[2017-09-21] MEDS ORDERED: ONDANSETRON 4 MG/2 ML VIAL IVP ONE (16:05)
[2017-09-21 16:15] LABS: PLATELET COUNT, AUTOMATED 436 K/uL (150-450)
--- NOTE | 2017-09-21 16:47 | EKG ---
FACILITY: [facility] PATIENT NAME: ANTHONY OLIVAS : [id number] MR: [id number] V: [id number] EXAM DATE: ORDERING PHYSICIAN: JULIÁN MIGUEL TECHNOLOGIST: Test Reason : Blood Pressure : / mmHG Vent. Rate : 117 BPM Atrial Rate : 117 BPM P-R Int : 120 ms QRS Dur : 074 ms QT Int : 322 ms P-R-T Axes : 054 023 -60 degrees QTc Int : 449 ms Sinus tachycardia with Possible premature atrial complexes with aberrant conduction Minimal voltage criteria for LVH, may be normal variant T wave abnormality, consider inferior ischemia T wave abnormality, consider anterolateral ischemia Abnormal ECG Confirmed by PABLO HINDS ([id number]) on 09/22/2017 6:36:19 AM Referred By: Confirmed By:PABLO HINDS
--- NOTE | 2017-09-21 17:30 | RADIOLOGY IMAGING REPORT ---
FACILITY: [facility] PATIENT NAME: Cassia Nathan : 1940 MR: [id number] V: [id number] EXAM DATE: ORDERING PHYSICIAN: JULIÁN MIGUEL TECHNOLOGIST: Location: [facility] Patient: Cassia Nathan : 1940 Visit/Account:[id number] Date of Sevice: 09/21/2017 Abdominal series with single view of the chest: 09/21/2017 4:04 PM HISTORY: Decreased output from the new ileostomy. COMPARISON: Chest x-ray on 09/09/2017. CT scan pelvis on 09/09/2017. FINDINGS: Some stool seen within the colon. Bowel gas pattern is nonobstructed and nondilated. Abdom inal soft tissues are grossly normal without suspicious lucencies or abnormal calcifications. Ostomy seen in the right lower quadrant. No acute bony abnormality. Cardiomediastinal silhouette and pulmonary vessels within normal limits. Right Port-A-Cath is in jaxon ce the tip in SVC unchanged. Removal of previous NG tube. Lungs show no consolidation. There is minim al blunting left costophrenic angle and minimal in the right costophrenic angle. No indication of pne umothorax. Stable nodule seen in the right lung. No new nodules are identified. No acute bony abnorma lity. IMPRESSION: 1. Unremarkable exam of the abdomen. 2. No acute pulmonary disease. Stable right lung nodules. Report Dictated By: Ignacio Nicholson at 09/21/2017 5:22 PM Report E-Signed By: Ignacio Nicholson at 09/21/2017 5:26 PM WSN:[id number]
[2017-09-21] MEDS ORDERED: MAGNESIUM OXIDE 400 MG TAB PO ONE (17:40)
[2017-09-21 18:40] VITALS: BP 120/65
[2017-09-21] MEDS ORDERED: MAGNESIUM SUL* 2 GM/50 ML IVPB 50 ML IVPB ONE (18:40)
--- NOTE | 2017-09-21 19:36 | History & Physical ---
History of Present Illness Chief Complaint The patient is a 76 year old female with PMH significant for metastatic cecal CA and recent small bowel obstruction s/p surgical repair/ileostomy who presents with nausea and severe weakness over the past 36 hours. History of Present Illness The patient was diagnosed with metastatic cecal CA in September 2015. She was started on chemo with Avastin and FOLFOX. She completed 5 cycles but then discontinued it due to side effects. She was placed on Hospice care over a year ago but after 5 months was doing well so was discharged. She then went to [facility] to visit her children and had a repeat evaluation there. Surgery and chemotherapy were recommended but she ultimately declined these. She was in [facility] for 8 months and returned home about 3-4 weeks ago. Upon return home she developed abdominal pain and bloating and was found to have a small bowel obstruction likely due to increasing cecal mass. She underwent diverting ileostomy with Dr. Groves and was discharged home on September 16. She has had to receive blood transfusions fairly frequently over the past few months. She had 2 transfusions shortly before returning to [place] and had 2 units transfused [facility] earlier this month as well. After surgery her CBC was reasonable so no transfusion was needed at that time. She did have a postoperative wound infection and has been on Augmentin 500/125mg bid (to continue through September 23). The patient states that she has felt weaker and has noticed her heart pounding over the past 36 hours. She has had some nausea as well. She has not had abdominal bloating. She has been passing stool and gas into her ileostomy. She did have a temperature of 99.3 at home prior to coming to the ER today. She and her have noticed her stool has changed from a yellowish color to dark green/black. She has not had BRB. The patient has had poor oral intake and decreased output from her ileostomy. She does have a history of PUD but is not currently on an H2 williams or PPI. History Problems: (1) Cancer of cecum Status: Chronic (2) PUD (peptic ulcer disease) Status: Chronic (3) Poor nutrition Status: Chronic (4) Hyperlipidemia Status: Chronic (5) Hypertension Status: Chronic Home Meds Active Scripts Amoxicillin/Potassium Clav (AUGMENTIN 500-125 TABLET) 1 Each Tablet, 1 TAB PO Q12H for 7 Days, #14 TAB Prov:ANGELA MADERA [employer]TING [employer] SUPERVISOR 09/16/17 Potassium Chloride (POTASSIUM CHLORIDE) 10 Meq Tab.er.prt, 10 MEQ PO TID, #90 TAB Prov:ANGELA MADERA [employer]TING [employer] SUPERVIS[employer] 09/16/17 Oxycodone Hcl (OXYCODONE HCL) 5 Mg Tablet, 5 MG PO Q4-6H Y for PAIN, #20 TAB Prov:BIANCA REYES [employer]TING RO[employer] SUPERVISOR 08/28/17 Reported Medications Dronabinol (DRONABINOL) 2.5 Mg Capsule, 2.5 MG PO BID 09/10/17 Amlodipine Besylate (AMLODIPINE BESYLATE) 5 Mg Tablet, 2 TAB PO QDAY, TAB 08/28/17 Tramadol Hcl (TRAMADOL HCL) 50 Mg Tablet, 50-150 MG PO Q4-6H Y for PAIN, TAB 08/28/17 Discontinued Reported Medications Bisacodyl (Women's Gentle Laxative) 5 Mg Tablet.dr, PO Q8H Y for CONSTIPATION 08/28/17 Allergies: Coded Allergies: diphenhydramine (Verified Adverse Reaction, Intermediate, RASH, 09/21/17) Patient History: Patient reports no known family medical history. Other Social/Family Hx The patient is from [facility] originally. She lives in [place] currently with her . Hx Smoking: Yes Smoking Status: Former Smoker Exposure to Second Hand Smoke?: Yes Caffeine Intake: Coffee Caffeine/Cups Per Day: 2 Hx Alcohol Use: Yes (OCC SIPS) Hx Substance Use Disorder: No Social Drug Use: Never History of IV Drug Use: No Review of Systems Constitutional: Fever (Low grade, 99.3.) Neurological: Weakness Eyes: No Vision Change ENT: No Hearing Loss Cardiovascular: Palpitations, No Chest Pain Respiratory: No Shortness of Breath, No Cough Gastrointestinal: Nausea, No Vomiting, Other (Change in output from ileostomy. Yellow to green/black. Decreased output.) Genitourinary: No Dysuria Musculoskeletal: No Pain Psychiatric: No Depression Exam Vital Signs Vital Signs Date Time Temp Pulse Resp B/P (MAP) Pulse Ox O2 Delivery O2 Flow Rate FiO2 09/21/17 18:08 104 10 100 09/21/17 18:00 120/71 (87) 09/21/17 17:05 2.0 09/21/17 15:36 98.8 Room Air General Appearance: Alert, Awake, No Acute Distress, Afebrile Neuro: No Gross deficits Eyes: PERRLA Cardiovascular: No Edema, Other (Tachy, regular with occasional ectopy. ) Respiratory: No Respiratory Distress, Clear to Auscultation GI: Abd Soft and Non-Tender, Other (Ileostomy in place right midabdomen. Stool is dark green to black. No BRB noted.) Lymph: Cervical Nodes Benign Extremities: Warm, Perfused Integumentary: Skin Intact without Lesion / Mass, Other (skin lateral to stoma with redness which has significantly receded from previously drawn hatched line. ) Psych: Appropriate Mood & Affect Medical Decision Making Data Points Result Diagram: 09/21/17 1548 09/21/17 1548 Item Value Date Time Random Glucose 60 mg/dl L 09/21/17 1548 Calcium Level 7.1 mg/dl L 09/21/17 1548 Magnesium Level 1.5 mg/dl L 09/21/17 1548 Total Bilirubin 1.1 mg/dl 09/21/17 1548 Aspartate Amino Transf (AST/SGOT) 67 U/L H 09/21/17 1548 Alanine Aminotransferase (ALT/SGPT) 29 U/L 09/21/17 1548 Alkaline Phosphatase 487 U/L H 09/21/17 1548 Total Protein 5.9 gm/dl L 09/21/17 1548 Albumin 2.2 g/dl L 09/21/17 1548 EKG / Imaging EKG Interpretation FACILITY: [facility] PATIENT NAME: ANTHONY OLIVAS : [id number] MR: [id number] V: [id number] EXAM DATE: ORDERING PHYSICIAN: JULIÁN MIGUEL TECHNOLOGIST: Test Reason : Blood Pressure : / mmHG Vent. Rate : 117 BPM Atrial Rate : 117 BPM P-R Int : 120 ms QRS Dur : 074 ms QT Int : 322 ms P-R-T Axes : 054 023 -60 degrees QTc Int : 449 ms Sinus tachycardia with Possible premature atrial complexes with aberrant conduction Minimal voltage criteria for LVH, may be normal variant T wave abnormality, consider inferior ischemia T wave abnormality, consider anterolateral ischemia Abnormal ECG When compared with ECG of 28-AUG-2017 19:27, aberrant conduction is now present Inverted T waves have replaced nonspecific T wave abnormality in Inferior leads Inverted T waves have replaced nonspecific T wave abnormality in Anterior leads Referred By: Confirmed By: [id number] T: / Pre-Admit Course Medical Record Review: Yes Assessment and Plan Problems: (1) Anemia Status: Acute Assessment & Plan: Likely due to recent surgery and cecal CA. She has had fairly frequent transfusions over the past few months. Ileostomy output is dark but no BRB. Will transfuse 2 u PRBCs. Recheck labs in am. (2) Hypomagnesemia Status: Acute Assessment & Plan: Will replace with IV magnesium, 2g. Will repeat magnesium level with am labs. (3) Cancer of cecum Status: Chronic Assessment & Plan: The patient has elected not to pursue surgery or chemotherapy. (4) Hypertension Status: Chronic Assessment & Plan: She is currently on amlodipine 10mg daily. (5) PUD (peptic ulcer disease) Status: Chronic Assessment & Plan: She has hx of PUD and GI bleed. Will start pantoprazole 40mg IV bid and switch to oral at discharge. (6) Poor nutrition Status: Chronic Assessment & Plan: Chronic and due to cecal CA and poor oral intake. Continue appetite stimulant. (7) Wound infection after surgery Status: Acute Assessment & Plan: Will continue Augmentin 500/125mg bid. Central Venous Access Medical Necessity for Access: IV Access Time Spent on Plan of Care: < 30 min Copies to: JENNIFER BENTLEY [employer]TING ROOM SUPERVISOR Venous Thromboembolism VTE Risk Physician Assess for VTE Risk: Yes Patient's VTE Risk: Low VTE Diagnostic Test 2 Days Prior to Admit: No Antithrombotics Is Pt On Any Antithrombotics?: No Prophylaxis Tx Contraindicated Pharmacological Contraindicati: Medical Contraindication (Anemia, colon CA.) Exam Sepsis Risk: Possible Sepsis Risk PABLO CHAVEZ MD September 21, 2017 19:36
[2017-09-21] MEDS ORDERED: NS(*) 0.9% 1000 ML BAG 1,000 ML IV PRN (19:50)
[2017-09-21] MEDS: POTASSIUM CHL 10 MEQ TABCR PO SCH (20:00)
[2017-09-21] MEDS: PANTOPRAZOLE SOD 40 MG IV VIAL IVP SCH (21:02)
[2017-09-21] MEDS: DRONABINOL 2.5 MG CAP PO SCH (21:02)
[2017-09-21] MEDS: AMOX/CLAV 500 MG TAB PO SCH (21:03)
[2017-09-21 21:39] VITALS: BP 117/69
[2017-09-21 21:54] VITALS: BP 124/60
[2017-09-22] VITALS (7 sets, daily range): BP systolic 114–170; BP diastolic 59–90
[2017-09-22 06:04] LABS: PLATELET COUNT, AUTOMATED 373 K/uL (150-450)
[2017-09-22] MEDS: POTASSIUM CHL 10 MEQ TABCR PO SCH (08:28)
[2017-09-22] MEDS: AMOX/CLAV 500 MG TAB PO SCH (08:28)
[2017-09-22] MEDS: DRONABINOL 2.5 MG CAP PO SCH (08:29)
[2017-09-22] MEDS: PANTOPRAZOLE SOD 40 MG IV VIAL IVP SCH (08:29)
[2017-09-22] MEDS ORDERED: amLODIPine BESYL(*) 5 MG TAB PO SCH (09:00)
[2017-09-22] MEDS ORDERED: IRON150C19 PO (09:48)
[2017-09-22] MEDS ORDERED: PANT40TA65 PO (09:54)
--- NOTE | 2017-09-22 10:03 | Hospitalist Depart ---
Discharge Summary Reason for Hosp/Final Diag: (1) Anemia Status: Acute Hospital Course & Plan: Likely due to recent surgery and cecal CA. She has had fairly frequent transfusions over the past few months. Ileostomy output is dark but no BRB. Her Hgb improved with 2 units of PRBC. Will have her re-try an iron supplement (previously had constipation related to it). Check iron studies /CBC in a few days. (2) Hypomagnesemia Status: Acute Hospital Course & Plan: Resolved with IV Mg (3) Hypertension Status: Chronic Hospital Course & Plan: She is currently on amlodipine 10mg daily. (4) PUD (peptic ulcer disease) Status: Chronic Hospital Course & Plan: She has hx of PUD and GI bleed. Will start pantoprazole 40mg IV bid and switch to oral at discharge. (5) Poor nutrition Status: Chronic Hospital Course & Plan: Chronic and due to cecal CA and poor oral intake. Continue appetite stimulant. (6) Wound infection after surgery Status: Acute Hospital Course & Plan: Improving. Will continue Augmentin 500/125mg bid. (7) Adenocarcinoma of cecum, stage 4b Status: Chronic Hospital Course & Plan: The patient has elected not to pursue surgery or chemotherapy. Total bilirubin is increasing, likely related to the liver mets. Repeat CMP in a few days. Departure Weight (Pounds): 96 Weight (Ounces): 6.0 Result Diagram: 09/22/17 0525 09/22/17 0525 Item Value Date Time Neutrophils % (Manual) 70 % 09/22/17 0525 Band Neutrophils % 2 % 09/22/17 0525 Lymphocytes % (Manual) 12 % L 09/22/17 0525 Atypical Lymphocytes % 4 % 09/22/17 0525 Monocytes % (Manual) 6 % 09/22/17 0525 Eosinophils % (Manual) 6 % 09/22/17 0525 Basophils % (Manual) 0 % L 09/22/17 0525 Total Bilirubin 2.5 mg/dl H 09/22/17 0525 Aspartate Amino Transf (AST/SGOT) 56 U/L H 09/22/17 0525 Alanine Aminotransferase (ALT/SGPT) 40 U/L 09/22/17 0525 Alkaline Phosphatase 559 U/L H 09/22/17 0525 Troponin I < 0.012 ng/ml 5/28/18 1932 Total Bilirubin 1.1 mg/dl 09/21/17 1548 Aspartate Amino Transf (AST/SGOT) 67 U/L H 09/21/17 1548 Alanine Aminotransferase (ALT/SGPT) 29 U/L 09/21/17 1548 Alkaline Phosphatase 487 U/L H 09/21/17 1548 Whole Blood Glucose 90 mg/DL 09/22/17 0812 Random Glucose 47 mg/dl *L 09/22/17 0525 Random Glucose 60 mg/dl L 09/21/17 1548 Creatinine 0.50 mg/dl L 09/21/17 1548 Creatinine 0.60 mg/dl 09/22/17 0525 Sodium Level 128 mmol/L L 09/22/17 0525 Sodium Level 132 mmol/L L 09/21/17 1548 Potassium Level 3.4 mmol/L L 09/21/17 1548 Potassium Level 4.1 mmol/L 09/22/17 0525 Imaging Abdominal Xray with CXR - 1. Unremarkable exam of the abdomen. 2. No acute pulmonary disease. Stable right lung nodules. Condition: Improved Discharge: Home Discharge Instructions Home Meds Active Scripts Pantoprazole Sodium (PANTOPRAZOLE SODIUM) 40 Mg Tablet.dr, 40 MG PO QDAY, #30 TAB.SR Prov:MONICA KENNEDY MD 09/22/17 Iron Polysaccharides Complex (POLYSACCHARIDE IRON 150) 150 Mg Capsule, 150 MG PO DAILY, #30 CAPSULE Prov:MONICA KENNEDY MD 09/22/17 Amoxicillin/Potassium Clav (AUGMENTIN 500-125 TABLET) 1 Each Tablet, 1 TAB PO Q12H for 7 Days, #14 TAB Prov:ANGELA MADEAR [facility] 09/16/17 Potassium Chloride (POTASSIUM CHLORIDE) 10 Meq Tab.er.prt, 10 MEQ PO TID, #90 TAB Prov:ANGELA MADERA [facility] 09/16/17 Oxycodone Hcl (OXYCODONE HCL) 5 Mg Tablet, 5 MG PO Q4-6H Y for PAIN, #20 TAB Prov:BIANCA REYES [facility] 08/28/17 Reported Medications Dronabinol (DRONABINOL) 2.5 Mg Capsule, 2.5 MG PO BID 09/10/17 Amlodipine Besylate (AMLODIPINE BESYLATE) 5 Mg Tablet, 2 TAB PO QDAY, TAB 08/28/17 Tramadol Hcl (TRAMADOL HCL) 50 Mg Tablet, 50-150 MG PO Q4-6H Y for PAIN, TAB 08/28/17 Discontinued Reported Medications Bisacodyl (Women's Gentle Laxative) 5 Mg Tablet.dr, PO Q8H Y for CONSTIPATION 08/28/17 Diet: Regular Activity: As Tolerated Special Instructions: Get a CBC, CMP, iron, TIBC, ferritin in a couple of days. Followup with your PCP in 1-2 weeks. Copies to: JENNIFER BENTLEY SUPERVISING APPRAISER Venous Thromboembolism Antithrombotics Is Pt On Any Antithrombotics?: No MONICA KENNEDY MD September 22, 2017 10:03
[2017-09-22] MEDS ORDERED: HEPARIN FLSH (PORT) 500 UN/5ML IVP ONE (10:35)
[2017-09-24] MEDS ORDERED: INFLUENZA VIRUS VAC 0.5 ML SYR IM ONLY ONE (09:00)
== END 2017-09-22 10:24 | disposition home or self-care (01) ==
LOC: ER 15:44 → INTOOBSV 18:11 → MED 18:11
PROVIDERS: ADMIT Internal Medicine; ATTEND Internal Medicine
DX: E83.42 Hypomagnesemia (principal); C18.0 Malignant neoplasm of cecum; C78.7 Secondary malignant neoplasm of liver and intrahepatic bile duct; D63.0 Anemia in neoplastic disease; K27.7 Chronic peptic ulcer, site unspecified, without hemorrhage or perforation; E78.5 Hyperlipidemia, unspecified; T81.4XXA Infection following a procedure, initial encounter; I10 Essential (primary) hypertension; Z93.2 Ileostomy status; Z92.21 Personal history of antineoplastic chemotherapy; Y83.8 Other surgical procedures as the cause of abnormal reaction of the patient, or of later complication, without mention of misadventure at the time of the procedure
CPT/HCPCS: 36416; 36430; 74022; 82948; 83735; 84484; 85025; 86850; 86900; 86901; 86920; 93005; 99284; A9270; C9113; G0378; J1642; J2405; J3475; J7030; J7040; P9016; Q0167; 82040; 82247; 82310; 82374; 82435; 82565; 82947; 84075; 84132; 84155; 84295; 84450; 84460; 84520

== ENCOUNTER 2017-09-24 14:15 | Emergency (ER) | payer MEDICARE, OTHER ==
[2017-09-10 08:53] VITALS: Wt 42.2 kg
[~2017-09-24 14:15] MED LIST changes: +IRON150C19 PO
--- NOTE | 2017-09-24 14:31 | ER Report ---
History and Physical Time Seen By : 14:30 Hx. of Stated Complaint: PATIENTS REPORTS BLOOD IN OSTOMY THIS MORNING. SHE HAD THE OSTOMY PUT IN 18 DAYS AGO HPI/ROS CHIEF COMPLAINT: Bleeding into ostomy bag HISTORY OF PRESENT ILLNESS: 76-year-old female patient presents to emergency room with complaint of blood in her ostomy bag. Patient has a long-standing history of cecal cancer. She is currently on hospice for this. She had a bowel obstruction and had a ileostomy placed to provide increased comfort. Patient states that she went to physical therapy yesterday and did pretty well. She went home and which woke up this morning she noticed blood in her ostomy bag. She states that she's not had any fevers or chills. She states that she has not had much of an appetite. She states overall she is feeling pretty well. She denies any abdominal pain at this time. REVIEW OF SYSTEMS: Respiratory: No cough, no dyspnea. Cardiovascular: No chest pain, no palpitations. Gastrointestinal: As noted above Musculoskeletal: No back pain. Allergies: Coded Allergies: diphenhydramine (Verified Adverse Reaction, Intermediate, RASH, 09/21/17) Home Meds Active Scripts Sucralfate (CARAFATE) 1 Gm Tablet, 1 GM PO QID, #60 TAB Take before meals and at bedtime. Crush the tablet and mix with water before taking. Prov:BIANCA REYES 09/24/17 Pantoprazole Sodium (PANTOPRAZOLE SODIUM) 40 Mg Tablet.dr, 40 MG PO QDAY, #30 TAB.SR Prov:MONICA KENNEDY MD 09/22/17 Iron Polysaccharides Complex (POLYSACCHARIDE IRON 150) 150 Mg Capsule, 150 MG PO DAILY, #30 CAPSULE Prov:MONICA KENNEDY MD 09/22/17 Amoxicillin/Potassium Clav (AUGMENTIN 500-125 TABLET) 1 Each Tablet, 1 TAB PO Q12H for 7 Days, #14 TAB Prov:ANGELA MADERA 09/16/17 Potassium Chloride (POTASSIUM CHLORIDE) 10 Meq Tab.er.prt, 10 MEQ PO TID, #90 TAB Prov:ANGELA MADERA 09/16/17 Oxycodone Hcl (OXYCODONE HCL) 5 Mg Tablet, 5 MG PO Q4-6H Y for PAIN, #20 TAB Prov:BIANCA REYES 08/28/17 Reported Medications Dronabinol (DRONABINOL) 2.5 Mg Capsule, 2.5 MG PO BID 09/10/17 Amlodipine Besylate (AMLODIPINE BESYLATE) 5 Mg Tablet, 2 TAB PO QDAY, TAB 08/28/17 Tramadol Hcl (TRAMADOL HCL) 50 Mg Tablet, 50-150 MG PO Q4-6H Y for PAIN, TAB 08/28/17 Past Medical/Surgical History Patient has a past medical history of hypertension, hyperlipidemia, cecal cancer , lower GI bleed, occasional alcohol use. Patient has a surgical history of tubal ligation, bowel obstruction. Patient has a family medical history of diabetes. Reviewed Nurses Notes: Yes Hx Smoking: Yes Smoking Status: Former Smoker Exposure to Second Hand Smoke?: Yes Hx Substance Use Disorder: No Hx Alcohol Use: Yes (OCC SIPS) Constitutional Vital Sign - Last 24 Hours 09/24/17 09/24/17 09/24/17 09/24/17 14:21 14:22 14:30 14:45 Temp 98.2 Pulse 105 97 Resp 20 19 B/P (MAP) 138/74 (95) 138/74 120/64 (82) Pulse Ox 90 92 O2 Delivery Room Air 09/24/17 09/24/17 09/24/17 09/24/17 15:00 15:15 15:30 15:45 Pulse 100 101 Resp 9 15 B/P (MAP) 127/70 (89) 128/74 (92) Pulse Ox 90 90 09/24/17 09/24/17 09/24/17 09/24/17 16:00 16:05 16:05 16:30 Pulse 99 99 Resp 20 20 B/P (MAP) 127/71 (89) 127/74 (91) Pulse Ox 90 90 09/24/17 09/24/17 09/24/17 09/24/17 16:30 16:35 16:35 17:00 Pulse 100 100 B/P (MAP) 127/74 (91) 119/70 (86) Pulse Ox 89 89 09/24/17 09/24/17 09/24/17 09/24/17 17:00 17:05 17:05 17:09 Pulse 94 94 B/P (MAP) 119/70 (86) 125/66 (85) 09/24/17 17:09 B/P (MAP) 125/66 (85) Physical Exam General Appearance: The patient is alert, has no immediate need for airway protection and no current signs of toxicity. Respiratory: Chest is non tender, lungs are clear to auscultation. Cardiac: regular rate and rhythm Gastrointestinal: Abdomen is soft and non tender, no masses, bowel sounds normal. Musculoskeletal: Neck: Neck is supple and non tender. Extremities have full range of motion and are non tender. Skin: No rashes or lesions. DIFFERENTIAL DIAGNOSIS: After history and physical exam differential diagnosis was considered for GI bleed, C. difficile infection, gastroenteritis, anemia. Medical Decision Making Data Points Result Diagram: 09/24/17 1453 09/24/17 1453 Laboratory Hematology Test 09/24/17 00:00 09/24/17 14:43 09/24/17 14:53 Clostridium Difficile Toxin A & B Negative Clostridium difficile Antigen Negative Stool Occult Blood (IFOB) Positive (NEGATIVE) Red Blood Count 5.50 M/uL (4.17-5.56) Mean Corpuscular Volume 80.5 fL (80.0-96.0) Mean Corpuscular Hemoglobin 26.8 pg (26.0-33.0) Mean Corpuscular Hemoglobin Concent 33.3 g/dL (32.0-36.0) Red Cell Distribution Width 24.0 % (11.5-14.5) Mean Platelet Volume 7.4 fL (7.2-11.1) Neutrophils (%) (Auto) % (39.4-72.5) Lymphocytes (%) (Auto) % (17.6-49.6) Monocytes (%) (Auto) % (4.1-12.4) Eosinophils (%) (Auto) % (0.4-6.7) Basophils (%) (Auto) % (0.3-1.4) Nucleated RBC Relative Count (auto) /100WBC Neutrophils # (Auto) K/uL (2.0-7.4) Lymphocytes # (Auto) K/uL (1.3-3.6) Monocytes # (Auto) K/uL (0.3-1.0) Eosinophils # (Auto) K/uL (0.0-0.5) Basophils # (Auto) K/uL (0.0-0.1) Nucleated RBC Absolute Count (auto) K/uL Neutrophils % (Manual) 77 % (39.4-72.5) Lymphocytes % (Manual) 16 % (17.6-49.6) Monocytes % (Manual) 5 % (4.1-12.4) Eosinophils % (Manual) 1 % (0.4-6.7) Basophils % (Manual) 1 % (0.3-1.4) Anisocytosis 3+ Sodium Level 131 mmol/L (137-145) Potassium Level 3.9 mmol/L (3.5-5.0) Chloride Level 101 mmol/L (98-107) Carbon Dioxide Level 20 mmol/L (22-31) Blood Urea Nitrogen 7 mg/dl (7-18) Creatinine 0.70 mg/dl (0.52-1.04) Glomerular Filtration Rate Calc > 60.0 Random Glucose 131 mg/dl (75-110) Calcium Level 9.1 mg/dl (8.4-10.2) Total Bilirubin 2.1 mg/dl (0.2-1.3) Aspartate Amino Transf (AST/SGOT) 77 U/L (0-35) Alanine Aminotransferase (ALT/SGPT) 33 U/L (0-56) Alkaline Phosphatase 845 U/L (0-126) Total Protein 7.4 gm/dl (6.3-8.2) Albumin 2.8 g/dl (3.5-5.0) Chemistry Test 09/24/17 00:00 09/24/17 14:43 09/24/17 14:53 Clostridium Difficile Toxin A & B Negative Clostridium difficile Antigen Negative Stool Occult Blood (IFOB) Positive (NEGATIVE) White Blood Count 11.6 k/uL (4.5-11.0) Red Blood Count 5.50 M/uL (4.17-5.56) Hemoglobin 14.7 g/dL (12.0-16.0) Hematocrit 44.3 % (34.0-47.0) Mean Corpuscular Volume 80.5 fL (80.0-96.0) Mean Corpuscular Hemoglobin 26.8 pg (26.0-33.0) Mean Corpuscular Hemoglobin Concent 33.3 g/dL (32.0-36.0) Red Cell Distribution Width 24.0 % (11.5-14.5) Platelet Count 435 K/uL (150-450) Mean Platelet Volume 7.4 fL (7.2-11.1) Neutrophils (%) (Auto) % (39.4-72.5) Lymphocytes (%) (Auto) % (17.6-49.6) Monocytes (%) (Auto) % (4.1-12.4) Eosinophils (%) (Auto) % (0.4-6.7) Basophils (%) (Auto) % (0.3-1.4) Nucleated RBC Relative Count (auto) /100WBC Neutrophils # (Auto) K/uL (2.0-7.4) Lymphocytes # (Auto) K/uL (1.3-3.6) Monocytes # (Auto) K/uL (0.3-1.0) Eosinophils # (Auto) K/uL (0.0-0.5) Basophils # (Auto) K/uL (0.0-0.1) Nucleated RBC Absolute Count (auto) K/uL Neutrophils % (Manual) 77 % (39.4-72.5) Lymphocytes % (Manual) 16 % (17.6-49.6) Monocytes % (Manual) 5 % (4.1-12.4) Eosinophils % (Manual) 1 % (0.4-6.7) Basophils % (Manual) 1 % (0.3-1.4) Anisocytosis 3+ Glomerular Filtration Rate Calc > 60.0 Calcium Level 9.1 mg/dl (8.4-10.2) Total Bilirubin 2.1 mg/dl (0.2-1.3) Aspartate Amino Transf (AST/SGOT) 77 U/L (0-35) Alanine Aminotransferase (ALT/SGPT) 33 U/L (0-56) Alkaline Phosphatase 845 U/L (0-126) Total Protein 7.4 gm/dl (6.3-8.2) Albumin 2.8 g/dl (3.5-5.0) ED Course/Re-evaluation ED Course Patient was admitted to an exam room, history and physical were obtained. Differential diagnoses were considered. On examination lungs are clear, heart is regular, abdomen was soft nontender. On evaluation of the ostomy there is no obvious bleeding. A CBC, CMP, occult stool and C. difficile were done. C. difficile was negative, H&H was actually elevated from what it was after she got blood, at 14 and 44. Patient was positive for occult blood. I discussed the findings with the patient. I did call and speak with Dr. Marcus in regards this. I discussed starting patient on Carafate. He felt that the bleeding was likely from the ostomy itself, however he did agree with going ahead and starting the Carafate. We will go ahead and discharge patient home at this time. She is follow-up with her primary care provider for any worsening of her condition. Patient verbalized understanding and agreement with plan. Decision to Disposition Date: September 24, 2017 Decision to Disposition Time: 16:56 Depart Departure Latest Vital Signs Vital Signs Date Time Temp Pulse Resp B/P (MAP) Pulse Ox O2 Delivery O2 Flow Rate FiO2 09/24/17 17:09 125/66 (85) 09/24/17 17:05 94 09/24/17 16:35 89 09/24/17 16:05 20 09/24/17 14:22 98.2 Room Air Impression: Primary Impression: GI bleed Condition: Improved Disposition: HOME OR SELF-CARE Referrals: JENNIFER BENTLEY (PCP) New Scripts Sucralfate (CARAFATE) 1 Gm Tablet 1 GM PO QID, #60 TAB Take before meals and at bedtime. Crush the tablet and mix with water before taking. Prov: BIANCA REYES 09/24/17 Patient Instructions: Gastrointestinal Bleeding (ED) Additional Instructions: Increase fluid intake. Get plenty of rest. Follow up with Dr. Groves as previously scheduled. Return to the ER if condition worsens. Limit activity by pain. Continue with Physical Therapy. Problem Qualifiers Primary Impression: GI bleed GI bleed type/associated pathology: unspecified gastrointestinal hemorrhage type Qualified Codes: K92.2 - Gastrointestinal hemorrhage, unspecified BIANCA REYES September 24, 2017 14:30
[2017-09-24 14:59] LABS: PLATELET COUNT, AUTOMATED 435 K/uL (150-450)
[2017-09-24] MEDS ORDERED: SUCR1TAB85 PO (16:54)
[2017-09-24] MEDS ORDERED: traMADol 50 MG TAB PO ONE (17:00)
[2017-09-24 17:09] VITALS: BP 125/66
== END 2017-09-24 17:25 | disposition home or self-care (01) ==
LOC: ER 14:26
DX: K92.2 Gastrointestinal hemorrhage, unspecified (principal)
CPT/HCPCS: 36415; 82274; 85025; 87324; 87449; 99283; A9270; 82040; 82247; 82310; 82374; 82435; 82565; 82947; 84075; 84132; 84155; 84295; 84450; 84460; 84520

== ENCOUNTER → 2017-09-28 | Outpatient (CLI) | payer MEDICARE, OTHER ==
[2017-09-10 08:53] VITALS: BMI 18.8
[~2017-09-28] MED LIST changes: +SUCR1TAB85 PO
[2017-09-28 12:37] LABS: PLATELET COUNT, AUTOMATED 453 K/uL (150-450)
== END ==
LOC: LAB 12:01
PROVIDERS: ATTEND Internal Medicine
DX: D53.9 Nutritional anemia, unspecified (principal); R94.5 Abnormal results of liver function studies
CPT/HCPCS: 36415; 82040; 82247; 82310; 82374; 82435; 82565; 82728; 82947; 83540; 83550; 83735; 84075; 84132; 84155; 84295; 84450; 84460; 84520; 85025

== ENCOUNTER → 2017-10-12 | Outpatient (CLI) | payer MEDICARE, OTHER ==
[2017-09-10 08:53] VITALS: BMI 18.8
[2017-10-12 11:15] LABS: PLATELET COUNT, AUTOMATED 428 K/uL (150-450)
== END ==
LOC: LAB 11:01
PROVIDERS: ATTEND Nurse Practitioner Family
DX: C18.9 Malignant neoplasm of colon, unspecified (principal); R79.9 Abnormal finding of blood chemistry, unspecified; D50.9 Iron deficiency anemia, unspecified; R91.8 Other nonspecific abnormal finding of lung field
CPT/HCPCS: 36415; 82040; 82247; 82310; 82374; 82435; 82565; 82947; 84075; 84132; 84155; 84295; 84450; 84460; 84520; 85025